=== PATIENT | male | born 1935 | race American Indian/Alaskan Native ===

== ENCOUNTER 2020-02-21 12:33 | Emergency (ER) | payer SELFPAY ==
--- NOTE | 2020-02-21 12:40 | Emergency Department Report ---
ED General Adult HPI - General Stated complaint: SYNC EPISODE Time Seen by Provider: 02/21/20 12:38 - History of Present Illness Initial comments: Patient is an 84-year-old male no significant past medical history who presents status post syncope. Patient lives in a half-way and he had a syncopal episode patient denies having any fever or chills any cough or shortness of breath. He states that this happened 1 month ago as well. Patient says he fell backwards on his buttocks did not hit his head there was no loss of consciousness he states that he felt dizzy and then leaned backwards. Currently now he is not having any dizziness. - Related Data Home Medications Medication Instructions Recorded Confirmed Last Taken Pravastatin Sodium [Pravastatin] 20 mg PO QHS 02/21/20 02/21/20 1 Day Ago ~02/20/20 amLODIPine [Norvasc] 10 mg PO DAILY 02/21/20 02/21/20 1 Day Ago ~02/20/20 carvediloL [Coreg] 3.125 mg PO BID 02/21/20 02/21/20 1 Day Ago ~02/20/20 lisinopriL [Zestril TAB] 40 mg PO QDAY 02/21/20 02/21/20 1 Day Ago ~02/20/20 metFORMIN [Glucophage] 500 mg PO BID 02/21/20 02/21/20 1 Day Ago ~02/20/20 Allergies Allergy/AdvReac Type Severity Reaction Status Date / Time Penicillins AdvReac Unknown Verified 02/21/20 13:08 ED Review of Systems ROS: Stated complaint: SYNC EPISODE Other details as noted in HPI Constitutional: denies: chills, fever Eyes: denies: eye pain, eye discharge, vision change ENT: denies: ear pain, throat pain Respiratory: denies: cough, shortness of breath, wheezing Cardiovascular: syncope. denies: chest pain, palpitations Endocrine: no symptoms reported Gastrointestinal: denies: abdominal pain, nausea, diarrhea Genitourinary: denies: urgency, dysuria Musculoskeletal: denies: back pain, joint swelling, arthralgia Skin: denies: rash, lesions Neurological: denies: headache, weakness, paresthesias Psychiatric: denies: anxiety, depression Hematological/Lymphatic: denies: easy bleeding, easy bruising ED Past Medical Hx - Medications Home Medications: Home Medications Medication Instructions Recorded Confirmed Last Taken Type Pravastatin Sodium [Pravastatin] 20 mg PO QHS 02/21/20 02/21/20 1 Day Ago History ~02/20/20 amLODIPine [Norvasc] 10 mg PO DAILY 02/21/20 02/21/20 1 Day Ago History ~02/20/20 carvediloL [Coreg] 3.125 mg PO BID 02/21/20 02/21/20 1 Day Ago History ~02/20/20 lisinopriL [Zestril TAB] 40 mg PO QDAY 02/21/20 02/21/20 1 Day Ago History ~02/20/20 metFORMIN [Glucophage] 500 mg PO BID 02/21/20 02/21/20 1 Day Ago History ~02/20/20 ED Physical Exam - General General appearance: alert, in no apparent distress - Head Head exam: Present: atraumatic, normocephalic - Eye Eye exam: Present: normal appearance - ENT ENT exam: Present: mucous membranes moist - Neck Neck exam: Present: normal inspection - Respiratory Respiratory exam: Present: normal lung sounds bilaterally. Absent: respiratory distress - Cardiovascular Cardiovascular Exam: Present: regular rate, normal rhythm. Absent: systolic murmur, diastolic murmur, rubs, gallop - GI/Abdominal GI/Abdominal exam: Present: soft, normal bowel sounds - Rectal Rectal exam: Present: deferred - Extremities Exam Extremities exam: Present: normal inspection - Back Exam Back exam: Present: normal inspection - Neurological Exam Neurological exam: Present: alert, oriented X3 - Psychiatric Psychiatric exam: Present: normal affect, normal mood - Skin Skin exam: Present: warm, dry, intact, normal color. Absent: rash ED Course Vital Signs 02/21/20 02/21/20 12:58 13:14 Temperature 97.9 F Pulse Rate 64 Respiratory 17 17 Rate Blood Pressure 148/70 Blood Pressure 148/70 [Left] O2 Sat by Pulse 98 98 Oximetry ED Medical Decision Making - Lab Data Result diagrams: 02/21/20 13:31 02/21/20 13:31 Lab Results 02/21/20 02/21/20 02/21/20 Range/Units 12:58 13:31 13:31 WBC 8.9 (4.5-11.0) K/mm3 RBC 3.90 (3.65-5.03) M/mm3 Hgb 11.7 L (11.8-15.2) gm/dl Hct 35.1 L (35.5-45.6) % MCV 90 (84-94) fl MCH 30 (28-32) pg MCHC 33 (32-34) % RDW 14.3 (13.2-15.2) % Plt Count 210 (140-440) K/mm3 Lymph % (Auto) 18.0 (13.4-35.0) % Edgar % (Auto) 6.4 (0.0-7.3) % Eos % (Auto) 5.2 H (0.0-4.3) % Baso % (Auto) 0.9 (0.0-1.8) % Lymph # (Auto) 1.6 (1.2-5.4) K/mm3 Edgar # (Auto) 0.6 (0.0-0.8) K/mm3 Eos # (Auto) 0.5 H (0.0-0.4) K/mm3 Baso # (Auto) 0.1 (0.0-0.1) K/mm3 Seg Neutrophils % 69.5 (40.0-70.0) % Seg Neutrophils # 6.2 (1.8-7.7) K/mm3 Sodium 140 (137-145) mmol/L Potassium 4.2 (3.6-5.0) mmol/L Chloride 101.2 (98-107) mmol/L Carbon Dioxide 29 (22-30) mmol/L Anion Gap 14 mmol/L BUN 18 (9-20) mg/dL Creatinine 1.2 (0.8-1.3) mg/dL Estimated GFR > 60 ml/min BUN/Creatinine Ratio 15 % Glucose 90 (75-100) mg/dL Lactic Acid (0.7-2.0) mmol/L Calcium 9.2 (8.4-10.2) mg/dL Total Bilirubin 0.20 (0.1-1.2) mg/dL AST 10 (5-40) units/L ALT 12 (7-56) units/L Alkaline Phosphatase 58 (35-129) units/L Troponin T (0.00-0.029) ng/mL Total Protein 7.3 (6.3-8.2) g/dL Albumin 3.8 L (3.9-5) g/dL Albumin/Globulin Ratio 1.1 % Urine Color Yellow (Yellow) Urine Turbidity Slightly-cloudy (Clear) Urine pH 6.0 (5.0-7.0) Ur Specific [place] 1.012 (1.003-1.030) Urine Protein <15 mg/dl (Negative) mg/dL Urine Glucose (UA) Neg (Negative) mg/dL Urine Ketones Neg (Negative) mg/dL Urine Blood Sm (Negative) Urine Nitrite Neg (Negative) Urine Bilirubin Neg (Negative) Urine Urobilinogen < 2.0 (<2.0) mg/dL Ur Leukocyte Esterase Neg (Negative) Urine WBC (Auto) 2.0 (0.0-6.0) /HPF Urine RBC (Auto) 3.0 (0.0-6.0) /HPF U Epithel Cells (Auto) < 1.0 (0-13.0) /HPF Urine Bacteria (Auto) 1+ (Negative) /HPF Urine Mucus Few /HPF 02/21/20 02/21/20 Range/Units 13:31 13:31 WBC (4.5-11.0) K/mm3 RBC (3.65-5.03) M/mm3 Hgb (11.8-15.2) gm/dl Hct (35.5-45.6) % MCV (84-94) fl MCH (28-32) pg MCHC (32-34) % RDW (13.2-15.2) % Plt Count (140-440) K/mm3 Lymph % (Auto) (13.4-35.0) % Edgar % (Auto) (0.0-7.3) % Eos % (Auto) (0.0-4.3) % Baso % (Auto) (0.0-1.8) % Lymph # (Auto) (1.2-5.4) K/mm3 Edgar # (Auto) (0.0-0.8) K/mm3 Eos # (Auto) (0.0-0.4) K/mm3 Baso # (Auto) (0.0-0.1) K/mm3 Seg Neutrophils % (40.0-70.0) % Seg Neutrophils # (1.8-7.7) K/mm3 Sodium (137-145) mmol/L Potassium (3.6-5.0) mmol/L Chloride (98-107) mmol/L Carbon Dioxide (22-30) mmol/L Anion Gap mmol/L BUN (9-20) mg/dL Creatinine (0.8-1.3) mg/dL Estimated GFR ml/min BUN/Creatinine Ratio % Glucose (75-100) mg/dL Lactic Acid 1.50 (0.7-2.0) mmol/L Calcium (8.4-10.2) mg/dL Total Bilirubin (0.1-1.2) mg/dL AST (5-40) units/L ALT (7-56) units/L Alkaline Phosphatase (35-129) units/L Troponin T < 0.010 (0.00-0.029) ng/mL Total Protein (6.3-8.2) g/dL Albumin (3.9-5) g/dL Albumin/Globulin Ratio % Urine Color (Yellow) Urine Turbidity (Clear) Urine pH (5.0-7.0) Ur Specific [place] (1.003-1.030) Urine Protein (Negative) mg/dL Urine Glucose (UA) (Negative) mg/dL Urine Ketones (Negative) mg/dL Urine Blood (Negative) Urine Nitrite (Negative) Urine Bilirubin (Negative) Urine Urobilinogen (<2.0) mg/dL Ur Leukocyte Esterase (Negative) Urine WBC (Auto) (0.0-6.0) /HPF Urine RBC (Auto) (0.0-6.0) /HPF U Epithel Cells (Auto) (0-13.0) /HPF Urine Bacteria (Auto) (Negative) /HPF Urine Mucus /HPF - EKG Data -: EKG Interpreted by Ny - EKG Data 02/21/20 13:21 EKG time 13: 17 rate 66 normal sinus rhythm no ST segment elevation no T wave inversion impression normal EKG - Medical Decision Making Cdx: Arrythmia ddx anemia, UTI I will get cbc, bmp, ua, cxr and ekg \ ED work-up is unremarkable I will discharge patient from the ED additional verbal discharge instructions were given. Critical care attestation.: If time is entered above; I have spent that time in minutes in the direct care of this critically ill patient, excluding procedure time. ED Disposition Clinical Impression: Syncope Qualifiers: Syncope type: unspecified Qualified Code(s): R55 - Syncope and collapse Disposition: DC-01 TO HOME OR SELFCARE Is pt being admited?: No Does the pt Need Aspirin: No Condition: Stable Instructions: Syncope (ED) Referrals: PRIMARY CAREMD [Primary Care Provider] - 3-5 Days BC RENEE MD [Staff Physician] - 3-5 Days
--- NOTE | 2020-02-21 13:35 | XRay Report ---
CHEST 1 VIEW 02/21/2020 12:29 PM INDICATION / CLINICAL INFORMATION: SOB. COMPARISON: None available. FINDINGS: SUPPORT DEVICES: None. HEART / MEDIASTINUM: No significant abnormality. LUNGS / PLEURA: No significant pulmonary or pleural abnormality. No pneumothorax. ADDITIONAL FINDINGS: No significant additional findings. IMPRESSION: 1. No acute abnormality of the chest. Signer Name: oJao Fairbanks MD Signed: 02/21/2020 1:30 PM Workstation Name: [id number]
[2020-02-21 13:41] LABS: Basophils # (Auto) 0.1 K/mm3 (0.0-0.1); Basophils % (Auto) 0.9 % (0.0-1.8); Eosinophils # (Auto) 0.5 K/mm3 (0.0-0.4); Eosinophils % (Auto) 5.2 % (0.0-4.3); Hematocrit 35.1 % (35.5-45.6); Hemoglobin 11.7 gm/dl (11.8-15.2); Lymphocytes # (Auto) 1.6 K/mm3 (1.2-5.4); Mean Corpuscular HGB Conc 33 % (32-34); Mean Corpuscular Volume 90 fl (84-94); Monocytes # (Auto) 0.6 K/mm3 (0.0-0.8); Monocytes % (Auto) 6.4 % (0.0-7.3); Platelet Count 210 K/mm3 (140-440); Red Cell Distribution Width 14.3 % (13.2-15.2)
[2020-02-21 14:17] LABS: Alanine Aminotransferase 12 units/L (7-56); Albumin 3.8 g/dL (3.9-5); BUN/Creatinine Ratio 15; Blood Urea Nitrogen 18 mg/dL (9-20); Calcium 9.2 mg/dL (8.4-10.2); Hemolysis Index 3
[2020-02-21 14:21] LABS: Bacteria,Urine 1+ /HPF (Negative); Bilirubin,Urine NEG (Negative); Blood,Urine SM (Negative); Color,Urine Yellow (Yellow); Mucus,Urine FEW /HPF; Protein,Urine <15 mg/dL mg/dL (Negative); Urobilinogen,Urine < 2.0 mg/dL (<2.0)
[2020-02-21 18:29] VITALS: BP 123/71
== END 2020-02-21 18:29 | disposition home or self-care (01) ==
LOC: ED 12:33
DX: R55 Syncope and collapse (principal)
CPT/HCPCS: 36415; 71045; 80053; 81001; 82140; 84484; 85025; 93005

== ENCOUNTER 2020-06-22 12:55 | Inpatient (IN) | payer MEDICARE ==
[2020-06-22] MEDS ORDERED: SODIUM CHLORIDE 0.9% 1000 ML IV SOLN IV ONE (13:33)
[2020-06-22] MEDS ORDERED: cefTRIAXone/NS 2 GM/100 ML 2 GM/100 ML BAG IV ONE (13:33)
--- NOTE | 2020-06-22 13:35 | Emergency Department Report ---
ED General Adult HPI - General Chief complaint: Dizziness Stated complaint: LBP PUI?: No Time Seen by Provider: 06/22/20 13:14 Source: patient, EMS ( EMS documentation not available at time of chart dictation ), RN notes reviewed, old records reviewed Mode of arrival: Stretcher Limitations: Physical Limitation, Other (The patient is a poor historian) - History of Present Illness Initial comments: The patient was evaluated in the emergency department for symptoms described in the history of present illness. He/she was evaluated in the context of the global COVID-19 pandemic, which necessitated consideration that the patient might be at risk for infection with the virus that causes COVID-19. Institutional protocols and algorithms that pertain to the evaluation of patients at risk for COVID-19 are in a state of rapid change based on information released by regulatory bodies including the CDC and federal and state organizations. These policies and algorithms were followed during the patient's care in the emergency department. Please note that these policies, procedures and recommendations changed on a rapid basis. Mr. Nix is a pleasant 85-year-old gentleman. He is not known to myself previously. He appears to have a past medical history of diabetes, hypertension and high cholesterol. It is not known who his primary care doctor is. He is also blind in the left eye. He may also have a history of dementia. He is brought to the hospital by emergency medical services apparently for weakness, and hypotension. It is not known who contacted emergency medical services. Apparently, the patient was at adult daycare. Patient states that he lives in a fpc. He states that "nothing is bothering me." He denies headache, neck pain, chest pain, abdominal pain, shortness of breath, urinary symptoms, loss of taste and smell, hematemesis and bright red blood per rectum. As per nursing documentation, EMS noted the patient to be hypotensive in the field, with a blood pressure of 82 systolic, then low 90 systolic. EMS reportedly gave the patient 500 cc of normal saline. Patient is not sure if he has started any new or different medications. The patient states that he is at his baseline at this time. The patient is not accompanied by friends or family at this time for additional information or collateral information. The patient has no recollection of the aforementioned complaint for weakness and hypotension. Therefore, he is not able to describe the qualitative nature of his symptoms, exacerbating factors, relieving factors, or aggravating factors. -: This afternoon Radiation: other Quality: other Consistency: other Improves with: other Worsens with: other Associated Symptoms: other Treatments Prior to Arrival: other - Related Data Home Medications Medication Instructions Recorded Confirmed Last Taken amLODIPine 10 mg PO DAILY 06/22/20 06/22/20 Unknown carvediloL [Coreg] 3.125 mg PO BID 06/22/20 06/22/20 Unknown lisinopriL [Zestril TAB] 40 mg PO QDAY 06/22/20 06/22/20 Unknown metFORMIN [Glucophage] 500 mg PO BID 06/22/20 06/22/20 Unknown Previous Rx's Medication Instructions Recorded Last Taken Type Latanoprost 0.005% 1 drops OU QHS bottle 06/26/20 Unknown Rx Pravastatin [Pravachol] 20 mg PO QHS #30 tablet 06/26/20 Unknown Rx Allergies Allergy/AdvReac Type Severity Reaction Status Date / Time Penicillins AdvReac Unknown Verified 02/21/20 13:08 ED Review of Systems ROS: Stated complaint: LBP Other details as noted in HPI Comment: All other systems reviewed and negative Eyes: other (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) ED Past Medical Hx - Past Medical History Hx Hypertension: Yes Hx Diabetes: Yes Hx Dementia: Yes Additional medical history: left eye blind, - Social History Smoking Status: Never Smoker - Medications Home Medications: Home Medications Medication Instructions Recorded Confirmed Last Taken Type amLODIPine 10 mg PO DAILY 06/22/20 06/22/20 Unknown History carvediloL [Coreg] 3.125 mg PO BID 06/22/20 06/22/20 Unknown History lisinopriL [Zestril TAB] 40 mg PO QDAY 06/22/20 06/22/20 Unknown History metFORMIN [Glucophage] 500 mg PO BID 06/22/20 06/22/20 Unknown History Latanoprost 0.005% 1 drops OU QHS bottle 06/26/20 Unknown Rx Pravastatin [Pravachol] 20 mg PO QHS #30 tablet 06/26/20 Unknown Rx ED Physical Exam - General Limitations: Physical Limitation General appearance: alert, in no apparent distress - Head Head exam: Present: atraumatic, normocephalic - Eye Eye exam: Present: EOMI. Absent: normal appearance (Cataract/opacification of the left eye. Cataract noted in the right eye.) - ENT ENT exam: Present: normal exam, normal orophraynx, mucous membranes moist, normal external ear exam - Neck Neck exam: Present: normal inspection, full ROM. Absent: tenderness, meningismus - Respiratory Respiratory exam: Present: normal lung sounds bilaterally. Absent: respiratory distress, wheezes, rales, rhonchi, stridor, decreased breath sounds - Cardiovascular Cardiovascular Exam: Present: normal rhythm, bradycardia, normal heart sounds. Absent: tachycardia, irregular rhythm, systolic murmur, diastolic murmur, rubs, gallop - GI/Abdominal GI/Abdominal exam: Present: soft. Absent: distended, tenderness, guarding, rebound, rigid, pulsatile mass - Rectal Rectal exam: Present: normal inspection, normal rectal tone, heme (-) stool - Extremities Exam Extremities exam: Present: normal inspection, full ROM, other (2+ pulses noted in the bilateral upper and lower extremities. There is no palpable cord. negative Homans sign. Muscular compartments are soft. The pelvis is stable.). Absent: pedal edema, calf tenderness - Back Exam Back exam: Present: normal inspection, full ROM. Absent: tenderness, CVA tenderness (R), CVA tenderness (L), paraspinal tenderness, vertebral tenderness - Neurological Exam Neurological exam: Present: alert, other (No facial droop. Tongue midline. Extraocular movements intact bilaterally. Facial sensation intact to light touch in V1, V2, V3 distribution bilaterally. 5 and a 5 strength in 4 extre mities. Sensation intact to light touch in 4 extremities.) - Psychiatric Psychiatric exam: Present: normal affect, normal mood - Skin Skin exam: Present: warm, dry, intact, normal color. Absent: rash ED Course Vital Signs 06/22/20 06/22/20 06/22/20 13:04 13:10 13:15 Temperature 97.6 F Pulse Rate 50 L 51 L Respiratory 18 21 Rate Blood Pressure 121/64 108/58 O2 Sat by Pulse 99 99 Oximetry 06/22/20 06/22/20 06/22/20 13:45 13:46 14:00 Temperature 94.0 F L Pulse Rate 54 L 55 L Respiratory 22 22 Rate Blood Pressure 108/58 135/64 O2 Sat by Pulse 88 99 Oximetry 06/22/20 06/22/20 06/22/20 14:30 15:00 15:16 Temperature Pulse Rate 61 65 66 Respiratory 17 16 17 Rate Blood Pressure 134/72 136/58 128/61 O2 Sat by Pulse 98 97 97 Oximetry 06/22/20 06/22/20 06/22/20 15:30 15:40 15:46 Temperature 97.7 F Pulse Rate 67 72 Respiratory 22 22 Rate Blood Pressure 108/58 126/56 O2 Sat by Pulse 97 97 Oximetry 06/22/20 06/22/20 06/22/20 16:00 16:16 16:46 Temperature Pulse Rate 69 73 70 Respiratory 25 H 25 H 26 H Rate Blood Pressure 135/64 123/58 123/58 O2 Sat by Pulse 98 98 98 Oximetry 06/22/20 06/22/20 17:00 17:16 Temperature Pulse Rate 67 69 Respiratory 18 20 Rate Blood Pressure 134/72 122/51 O2 Sat by Pulse 98 97 Oximetry - Reevaluation(s) Reevaluation #1: 06/22/20 14:08 Differential diagnosis, including but not limited to: Orthostasis, vagal event, structural cardiac disease, hypothyroidism, myxedema, pneumonia, urinary tract infection, medication side effect, bacteremia, viremia Assessment and plan: 85-year-old gentleman, who is hypothermic, with a core rectal temperature of 94 degrees, bradycardic, and hypotensive in the field. Now blood pressure in the low 100s. Patient has no complaints at this time. I have requested that nursing team reconcile patient's medications. Patient will be given fluids, and we will order ceftriaxone empirically to cover for bacteremia. As a third generation cephalosporin, ceftriaxone structurally not similar to penicillin or penicillin derivatives, and is very statistically unlikely to cause anaphylactic or anaphylactoid reaction. Laboratory studies, x-ray of the chest, urinalysis pending at this time, active patient rewarming ordered. Reassess after initial data points. Patient meets criteria for admission/hospitalization secondary to hypothermia, bradycardia, history of hypotension. Reevaluation #2: 06/22/20 15:48 Hospital physician, Dr. Patterson, to admit patient to the medical service. Nursing team perform straight catheterization, no urine was obtained, therefore, condom catheter was placed, I will defer to the inpatient team to further follow-up on urinalysis. ED Medical Decision Making - Lab Data Result diagrams: 06/26/20 07:21 06/26/20 07:21 Vital Signs 06/22/20 06/22/20 06/22/20 13:04 13:10 13:15 Temperature 97.6 F Pulse Rate 50 L 51 L Respiratory 18 21 Rate Blood Pressure 121/64 108/58 O2 Sat by Pulse 99 99 Oximetry Lab Results 06/22/20 Range/Units 13:38 WBC 7.9 (4.5-11.0) K/mm3 RBC 3.61 L (3.65-5.03) M/mm3 Hgb 11.3 L (11.8-15.2) gm/dl Hct 33.2 L (35.5-45.6) % MCV 92 (84-94) fl MCH 31 (28-32) pg MCHC 34 (32-34) % RDW 14.8 (13.2-15.2) % Plt Count 210 (140-440) K/mm3 Lymph % (Auto) 20.4 (13.4-35.0) % Allen % (Auto) 6.3 (0.0-7.3) % Eos % (Auto) 4.8 H (0.0-4.3) % Baso % (Auto) 1.4 (0.0-1.8) % Lymph # (Auto) 1.6 (1.2-5.4) K/mm3 Allen # (Auto) 0.5 (0.0-0.8) K/mm3 Eos # (Auto) 0.4 (0.0-0.4) K/mm3 Baso # (Auto) 0.1 (0.0-0.1) K/mm3 Seg Neutrophils % 67.1 (40.0-70.0) % Seg Neutrophils # 5.3 (1.8-7.7) K/mm3 - EKG Data -: EKG Interpreted by Ar EKG shows normal: sinus rhythm Rate: normal - EKG Data 06/22/20 14:10 Sinus rhythm, 54 bpm, bradycardia. Normal axis, normal intervals, motion artifact, poor R wave progression. This is an abnormal EKG. This is not a STEMI. Time of interpretation: 13: 50 p.m. - Radiology Data Radiology results: pending, report reviewed, image reviewed CHEST 1 VIEW INDICATION: Hypotension, hypothermia COMPARISON: 02/21/2020 FINDINGS: Support devices: None Heart: Within normal limits and unchanged Lungs/Pleura: No acute pulmonary or pleural findings. IMPRESSION: 1. No acute disease and no interval change. Signer Name: Brenden De La Vega MD Signed: 06/22/2020 12:52 PM Workstation Name: [id number] Critical care attestation.: If time is entered above; I have spent that time in minutes in the direct care of this critically ill patient, excluding procedure time. ED Disposition Clinical Impression: Hypotension, Lactic acidosis Hypothermia Qualifiers: Encounter type: initial encounter Qualified Code(s): T68.XXXA - Hypothermia, initial encounter Disposition: DC09 OP ADMIT IP TO THIS HOSP Is pt being admited?: Yes Does the pt Need Aspirin: No Condition: Fair
[2020-06-22 13:56] LABS: Basophils # (Auto) 0.1 K/mm3 (0.0-0.1); Basophils % (Auto) 1.4 % (0.0-1.8); Eosinophils # (Auto) 0.4 K/mm3 (0.0-0.4); Eosinophils % (Auto) 4.8 % (0.0-4.3); Hematocrit 33.2 % (35.5-45.6); Hemoglobin 11.3 gm/dl (11.8-15.2); Lymphocytes # (Auto) 1.6 K/mm3 (1.2-5.4); Lymphocytes % (Auto) 20.4 % (13.4-35.0); Mean Corpuscular HGB Conc 34 % (32-34); Mean Corpuscular Volume 92 fl (84-94); Monocytes # (Auto) 0.5 K/mm3 (0.0-0.8); Monocytes % (Auto) 6.3 % (0.0-7.3); Platelet Count 210 K/mm3 (140-440); Red Blood Count 3.61 M/mm3 (3.65-5.03); Red Cell Distribution Width 14.8 % (13.2-15.2)
--- NOTE | 2020-06-22 14:06 | XRay Report ---
CHEST 1 VIEW INDICATION: Hypotension, hypothermia COMPARISON: 02/21/2020 FINDINGS: Support devices: None Heart: Within normal limits and unchanged Lungs/Pleura: No acute pulmonary or pleural findings. IMPRESSION: 1. No acute disease and no interval change. Signer Name: Brenden De La Vega MD Signed: 06/22/2020 1:52 PM Workstation Name: [id number]
[2020-06-22 15:26] LABS: Alanine Aminotransferase 8 units/L (7-56); Albumin 3.8 g/dL (3.9-5); BUN/Creatinine Ratio 13; Blood Urea Nitrogen 17 mg/dL (9-20); Calcium 9.3 mg/dL (8.4-10.2); Hemolysis Index 6
--- NOTE | 2020-06-22 15:49 | History and Physical Report ---
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 Patient has diminished cognition and is unable to provide detailed history. Patient reports "nothing is bothering me". Patient history taken from EMS staff, ED staff, as well as jail staff. As per staff the patient was found to have increased weakness and low blood pressure today. EMS was notified and upon arrival the patient was found to be in distress with a systolic blood pressure in the 90s. Patient transported to [facility] for further care and evaluation. Patient seen and evaluated in the emergency department. All lab and imaging studies reviewed. Patient found to be hypothermic with a body core temperature of 94 F, systolic blood pressure in the 90s, lactic acidosis, urinary tract infection complicated by sepsis. Patient mated to medical floor and initiated on sepsis protocol. Patient symptoms improved with IV fluid resuscitation therapy and warming b lanket. Patient is confused and lethargic the time my evaluation but has a positive gag reflex and is able to protect his airway without difficulty. No further history is obtainable. No prior admission for review. All medication listed at time of admission has been reconciled. Advanced care planning conducted in ED. Past History Past Medical History: diabetes, hypertension, hyperlipidemia, other (See HPI) Past Surgical History: No surgical history, Other (Reviewed) Social history: single. denies: smoking, alcohol abuse, prescription drug abuse Family history: diabetes, hypertension Medications and Allergies Allergies Allergy/AdvReac Type Severity Reaction Status Date / Time Penicillins AdvReac Unknown Verified 02/21/20 13:08 Home Medications Medication Instructions Recorded Confirmed Last Taken Type Latanoprost 0.005% 1 drop OU QHS 06/22/20 06/22/20 Unknown History Pravastatin [Pravachol] 20 mg PO QHS 06/22/20 06/22/20 Unknown History amLODIPine [Norvasc] 10 mg PO DAILY 06/22/20 06/22/20 Unknown History carvediloL [Coreg] 3.125 mg PO BID 06/22/20 06/22/20 Unknown History lisinopriL [Zestril TAB] 40 mg PO QDAY 06/22/20 06/22/20 Unknown History metFORMIN [Glucophage] 500 mg PO BID 06/22/20 06/22/20 Unknown History Review of Systems ROS unobtainable: due to mental status Exam - Constitutional Vitals: Temp Pulse Resp BP Pulse Ox 97.7 F 66 17 128/61 97 06/22/20 15:40 06/22/20 15:16 06/22/20 15:16 06/22/20 15:16 06/22/20 15:16 General appearance: Present: mild distress - EENT Eyes: Present: PERRL ENT: clear oral mucosa, hearing decreased - Neck Neck: Present: supple, normal ROM - Respiratory Respiratory effort: normal Respiratory: bilateral: CTA - Cardiovascular Heart Sounds: Present: S1 & S2. Absent: rub, click - Extremities Extremities: pulses symmetrical, No edema Peripheral Pulses: abnormal (Capillary refill greater than 3.5 seconds) - Abdominal General gastrointestinal: Present: soft, non-tender, non-distended, normal bowel sounds Male genitourinary: Present: normal - Integumentary Integumentary: Present: dry, clammy - Musculoskeletal Musculoskeletal: generalized weakness - Psychiatric Psychiatric: no appropriate mood/affect, no intact judgment & insight, no memory intact, agitated - Neurologic Neurologic: CNII-XII intact, no focal deficits, moves all extremities, no gait normal HEART Score - HEART Score Troponin: Troponin T < 0.010 ng/mL (0.00-0.029) 06/22/20 13:38 Results - Labs CBC & Chem 7: 06/22/20 13:38 06/22/20 13:38 Labs: Abnormal lab results 06/22/20 06/22/20 06/22/20 Range/Units 13:38 13:38 13:38 RBC 3.61 L (3.65-5.03) M/mm3 Hgb 11.3 L (11.8-15.2) gm/dl Hct 33.2 L (35.5-45.6) % Eos % (Auto) 4.8 H (0.0-4.3) % Lactic Acid (0.7-2.0) mmol/L Albumin (3.9-5) g/dL Salicylates < 0.3 L (2.8-20.0) mg/dL Acetaminophen 5.0 L (10.0-30.0) ug/mL 06/22/20 06/22/20 Range/Units 13:38 13:38 RBC (3.65-5.03) M/mm3 Hgb (11.8-15.2) gm/dl Hct (35.5-45.6) % Eos % (Auto) (0.0-4.3) % Lactic Acid 2.10 H* (0.7-2.0) mmol/L Albumin 3.8 L (3.9-5) g/dL Salicylates (2.8-20.0) mg/dL Acetaminophen (10.0-30.0) ug/mL Assessment and Plan - Patient Problems (1) Sepsis Current Visit: Yes Status: Acute Plan to address problem: Sepsis protocol: CBC, CMP, IV fluid resuscitation therapy, IV antibiotic therapy, chest x-ray, urinalysis, blood culture, serial lactic acid level, monitor urine output every shift, monitor fluid balance, maintain mean arterial pressure greater than or equal to 65. (2) Hypothermia Current Visit: Yes Status: Acute Qualifiers: Encounter type: initial encounter Qualified Code(s): T68.XXXA - Hypothermia, initial encounter Plan to address problem: Supportive care, treat sepsis, warming blanket. (3) Lactic acidosis Current Visit: Yes Status: Acute Plan to address problem: IV fluid resuscitation therapy, treat sepsis, serial lactic acid level. (4) DVT prophylaxis Current Visit: Yes Status: Acute Plan to address problem: SCD to bilateral lower extremities while in bed, prophylactic anticoagulation. (5) Advance care planning Current Visit: Yes Status: Acute Plan to address problem: Disease education conducted, patient is full code, care plan discussed, prognosis discussed, +30 minutes.
[2020-06-22] MEDS ORDERED: ALBUTEROL 2.5 MG/3 ML NEBU IH PRN (16:03)
[2020-06-22] MEDS ORDERED: ONDANSETRON 4 MG/2 ML INJ IV PRN (16:03)
[2020-06-22] MEDS ORDERED: ACETAMINOPHEN 325 MG TAB PO PRN ×2 (16:03→16:04)
[2020-06-22] MEDS ORDERED: HYDROmorphone 1 MG/1 ML INJ IV PRN (16:04)
[2020-06-22] MEDS ORDERED: DEXTROSE 50% IN WATER (25GM) 50 ML SYRINGE IV PRN (16:06)
[2020-06-22] MEDS: INSULIN REGULAR, HUMAN 100 UNITS/1 ML SUB-Q SCH ×2 (17:42→22:00)
[2020-06-22 18:24] LABS: Bacteria,Urine 2+ /HPF (Negative); Bilirubin,Urine NEG (Negative); Blood,Urine SM (Negative); Color,Urine Yellow (Yellow); Mucus,Urine FEW /HPF; Protein,Urine <15 mg/dL mg/dL (Negative); Urobilinogen,Urine < 2.0 mg/dL (<2.0)
[2020-06-22] MEDS: PRAVASTATIN 20 MG TAB PO SCH (21:11)
[2020-06-22] MEDS: HEPARIN 5,000 UNIT/1 ML VIAL SUB-Q SCH (21:11)
[2020-06-22] MEDS: LATANOPROST 0.005% OPHTH SOLN 2.5 ML OU SCH (22:00)
[2020-06-23 05:15] LABS: Basophils # (Auto) 0.1 K/mm3 (0.0-0.1); Basophils % (Auto) 0.9 % (0.0-1.8); Eosinophils # (Auto) 0.2 K/mm3 (0.0-0.4); Eosinophils % (Auto) 3.6 % (0.0-4.3); Hemoglobin 9.8 gm/dl (11.8-15.2); Lymphocytes # (Auto) 1.6 K/mm3 (1.2-5.4); Mean Corpuscular HGB Conc 34 % (32-34); Mean Corpuscular Volume 91 fl (84-94); Monocytes # (Auto) 0.4 K/mm3 (0.0-0.8); Monocytes % (Auto) 6.6 % (0.0-7.3); Platelet Count 194 K/mm3 (140-440)
[2020-06-23 05:35] LABS: Alanine Aminotransferase 7 units/L (7-56); Albumin 3.3 g/dL (3.9-5); BUN/Creatinine Ratio 12; Blood Urea Nitrogen 14 mg/dL (9-20); Calcium 8.5 mg/dL (8.4-10.2); Hemolysis Index 5
[2020-06-23] MEDS: INSULIN REGULAR, HUMAN 100 UNITS/1 ML SUB-Q SCH ×4 (08:16→21:30)
[2020-06-23] MEDS: HEPARIN 5,000 UNIT/1 ML VIAL SUB-Q SCH ×2 (09:04→21:20)
[2020-06-23] MEDS: LATANOPROST 0.005% OPHTH SOLN 2.5 ML OU SCH (21:20)
[2020-06-23] MEDS: PRAVASTATIN 20 MG TAB PO SCH (21:21)
[2020-06-24] MEDS: INSULIN REGULAR, HUMAN 100 UNITS/1 ML SUB-Q SCH ×4 (10:19→21:38)
[2020-06-24] MEDS: HEPARIN 5,000 UNIT/1 ML VIAL SUB-Q SCH ×2 (10:21→21:36)
--- NOTE | 2020-06-24 16:00 | Progress Note ---
Assessment and Plan Assessment and Plan - Patient Problems (1) Sepsis Current Visit: Yes Status: Acute Plan to address problem: Continue IV antibiotics (2) Hypothermia Current Visit: Yes Status: Acute Qualifiers: Encounter type: initial encounter Qualified Code(s): T68.XXXA - Hypothermia, initial encounter Plan to address problem: Improved (3) Lactic acidosis Current Visit: Yes Status: Acute Plan to address problem: Improved (4) DVT prophylaxis Current Visit: Yes Status: Acute Plan to address problem: SCD to bilateral lower extremities while in bed, prophylactic anticoagulation. (5) Advance care planning Current Visit: Yes Status: Acute Plan to address problem: Disease education conducted, patient is full code, care plan discussed, prognosis discussed, +30 minutes. Subjective Date of service: 06/23/20 Interval history: 85 YO Male [facility] Resident with HTN, HLD, DM, Vascular Dementia, Cerebral Atherosclerosis presents to ED for evaluation. Patient has diminished cognition and is unable to provide detailed history. Patient reports "nothing is bothering me". Patient history taken from EMS staff, ED staff, as well as [facility] staff. As per staff the patient was found to have increased weakness and low blood pressure today. EMS was notified and upon arrival the patient was found to be in distress with a systolic blood pressure in the 90s. Patient transported to [facility] for further care and evaluation. Patient seen and evaluated in the emergency department. All lab and imaging studies reviewed. Patient found to be hypothermic with a body core temperature of 94 F, systolic blood pressure in the 90s, lactic acidosis, urinary tract infection complicated by sepsis. Patient mated to medical floor and initiated on sepsis protocol. Patient symptoms improved with IV fluid resuscitation therapy and warming blanket. Patient is confused and lethargic the time my evaluation but has a positive gag reflex and is able to protect his airway without difficulty. No further history is obtainable. No prior admission for review. All medication listed at time of admission has been reconciled. Advanced care planning conducted in ED. Objective - Constitutional Vitals: Vital Signs - 12hr 06/24/20 06/24/20 06/24/20 05:27 07:58 10:00 Temperature 98.3 F 98.4 F Pulse Rate 61 63 63 Pulse Rate [ 65 Dorsalis Pedis] Pulse Rate [ 65 Left Radial] Pulse Rate [ 65 Posterior Tibial] Pulse Rate [ 65 Right Radial] Respiratory 20 18 19 Rate Blood Pressure 140/71 137/68 O2 Sat by Pulse 98 93 98 Oximetry 06/24/20 11:15 Temperature 98.4 F Pulse Rate 66 Pulse Rate [ Dorsalis Pedis] Pulse Rate [ Left Radial] Pulse Rate [ Posterior Tibial] Pulse Rate [ Right Radial] Respiratory 20 Rate Blood Pressure 137/59 O2 Sat by Pulse 95 Oximetry General appearance: Present: no acute distress, well-nourished - EENT Eyes: PERRL, EOM intact ENT: hearing intact, clear oral mucosa Ears: bilateral: normal - Neck Neck: supple, normal ROM - Respiratory Respiratory effort: normal Respiratory: bilateral: CTA - Breasts Breasts: normal - Cardiovascular Heart rate: 78 Rhythm: regular Heart Sounds: Present: S1 & S2. Absent: gallop, rub Extremities: pulses intact, No edema, normal color, Full ROM - Gastrointestinal General gastrointestinal: Present: soft, non-tender, non-distended, normal bowel sounds - Genitourinary Male genitourinary: normal - Integumentary Integumentary: clear, warm, dry - Musculoskeletal Musculoskeletal: 1, strength equal bilaterally - Neurologic Neurologic: moves all extremities - Psychiatric Psychiatric: memory intact, appropriate mood/affect, intact judgment & insight - Labs CBC & Chem 7: 06/23/20 04:59 06/23/20 04:59 Labs: Abnormal lab results 06/23/20 06/23/20 06/24/20 Range/Units 15:45 20:57 11:55 POC Glucose 125 H 235 H 110 H (70-105) mg/dL HEART Score - HEART Score Troponin: Troponin T < 0.010 ng/mL (0.00-0.029) 06/22/20 13:38
--- NOTE | 2020-06-24 16:16 | Progress Note ---
Assessment and Plan Assessment and Plan - Patient Problems (1) Sepsis Current Visit: Yes Status: Acute Plan to address problem: Continue IV antibiotics (2) Acute encephalopathy Current Visit: Yes Status: Acute Qualifiers: Encounter type: initial encounter Qualified Code(s): T68.XXXA - Hypothermia, initial encounter Plan to address problem: Improved (3) Lactic acidosis Current Visit: Yes Status: Acute Plan to address problem: Improved (4) DVT prophylaxis Current Visit: Yes Status: Acute Plan to address problem: SCD to bilateral lower extremities while in bed, prophylactic anticoagulation. (5) Advance care planning Current Visit: Yes Status: Acute Plan to address problem: Disease education conducted, patient is full code, care plan discussed, prognosis discussed, +30 minutes. Subjective Date of service: 06/24/20 Principal diagnosis: Sepsis, acute encephalopathy Interval history: 85 YO Male [facility] Resident with HTN, HLD, DM, Vascular Dementia, Cerebral Atherosclerosis presents to ED for evaluation. Patient has diminished cognition and is unable to provide detailed history. Patient reports "nothing is bothering me". Patient history taken from EMS staff, ED staff, as well as alf staff. As per staff the patient was found to have increased weakness and low blood pressure today. EMS was notified and upon arrival the patient was found to be in distress with a systolic blood pressure in the 90s. Patient transported to [facility] for further care and evaluation. Patient seen and evaluated in the emergency department. All lab and imaging studies reviewed. Patient f ound to be hypothermic with a body core temperature of 94 F, systolic blood pressure in the 90s, lactic acidosis, urinary tract infection complicated by sepsis. Patient mated to medical floor and initiated on sepsis protocol. Patient symptoms improved with IV fluid resuscitation therapy and warming blanket. Patient is confused and lethargic the time my evaluation but has a positive gag reflex and is able to protect his airway without difficulty. No further history is obtainable. No prior admission for review. All medication listed at time of admission has been reconciled. Advanced care planning conducted in ED. 06/23/2020 Still lethargic 06/24/2020 More alert and oriented Objective - Constitutional Vitals: Vital Signs - 12hr 06/24/20 06/24/20 06/24/20 05:27 07:58 10:00 Temperature 98.3 F 98.4 F Pulse Rate 61 63 63 Pulse Rate [ 65 Dorsalis Pedis] Pulse Rate [ 65 Left Radial] Pulse Rate [ 65 Posterior Tibial] Pulse Rate [ 65 Right Radial] Respiratory 20 18 19 Rate Blood Pressure 140/71 137/68 O2 Sat by Pulse 98 93 98 Oximetry 06/24/20 11:15 Temperature 98.4 F Pulse Rate 66 Pulse Rate [ Dorsalis Pedis] Pulse Rate [ Left Radial] Pulse Rate [ Posterior Tibial] Pulse Rate [ Right Radial] Respiratory 20 Rate Blood Pressure 137/59 O2 Sat by Pulse 95 Oximetry General appearance: Present: no acute distress, well-nourished - EENT Eyes: PERRL, EOM intact ENT: hearing intact, clear oral mucosa Ears: bilateral: normal - Neck Neck: supple, normal ROM - Respiratory Respiratory effort: normal Respiratory: bilateral: CTA - Breasts Breasts: normal - Cardiovascular Heart rate: 78 Rhythm: regular Heart Sounds: Present: S1 & S2. Absent: gallop, rub Extremities: pulses intact, No edema, normal color, Full ROM - Gastrointestinal General gastrointestinal: Present: soft, non-tender, non-distended, normal bowel sounds - Genitourinary Male genitourinary: normal - Integumentary Integumentary: clear, warm, dry - Musculoskeletal Musculoskeletal: 1, strength equal bilaterally - Neurologic Neurologic: moves all extremities - Psychiatric Psychiatric: other (Lethargic) - Allied health notes Allied health notes reviewed: nursing, case management - Labs CBC & Chem 7: 06/23/20 04:59 06/23/20 04:59 Labs: Abnormal lab results 06/23/20 06/23/20 06/24/20 Range/Units 15:45 20:57 11:55 POC Glucose 125 H 235 H 110 H (70-105) mg/dL HEART Score - HEART Score Troponin: Troponin T < 0.010 ng/mL (0.00-0.029) 06/22/20 13:38
[2020-06-24] MEDS: LATANOPROST 0.005% OPHTH SOLN 2.5 ML OU SCH (21:36)
[2020-06-24] MEDS: PRAVASTATIN 20 MG TAB PO SCH (21:36)
[2020-06-25] MEDS: LATANOPROST 0.005% OPHTH SOLN 2.5 ML OU SCH
[2020-06-25 07:19] LABS: Basophils # (Auto) 0.1 K/mm3 (0.0-0.1); Basophils % (Auto) 1.5 % (0.0-1.8); Eosinophils # (Auto) 0.4 K/mm3 (0.0-0.4); Eosinophils % (Auto) 7.6 % (0.0-4.3); Hematocrit 31.1 % (35.5-45.6); Hemoglobin 10.3 gm/dl (11.8-15.2); Lymphocytes # (Auto) 1.8 K/mm3 (1.2-5.4); Mean Corpuscular HGB Conc 33 % (32-34); Mean Corpuscular Volume 91 fl (84-94); Monocytes # (Auto) 0.5 K/mm3 (0.0-0.8); Monocytes % (Auto) 9.3 % (0.0-7.3); Platelet Count 176 K/mm3 (140-440); Red Blood Count 3.43 M/mm3 (3.65-5.03); Red Cell Distribution Width 14.9 % (13.2-15.2)
[2020-06-25 07:42] LABS: Alanine Aminotransferase 7 units/L (7-56); Albumin 3.3 g/dL (3.9-5); BUN/Creatinine Ratio 11; Blood Urea Nitrogen 13 mg/dL (9-20); Calcium 8.7 mg/dL (8.4-10.2); Hemolysis Index 1
[2020-06-25] MEDS: INSULIN REGULAR, HUMAN 100 UNITS/1 ML SUB-Q SCH ×4 (09:15→21:43)
[2020-06-25] MEDS: HEPARIN 5,000 UNIT/1 ML VIAL SUB-Q SCH ×2 (09:15→21:41)
--- NOTE | 2020-06-25 14:10 | Progress Note ---
Assessment and Plan Assessment and Plan - Patient Problems (1) Sepsis Current Visit: Yes Status: Acute Plan to address problem: Continue IV antibiotics (2) Acute encephalopathy Current Visit: Yes Status: Acute Qualifiers: Encounter type: initial encounter Qualified Code(s): T68.XXXA - Hypothermia, initial encounter Plan to address problem: Improved (3) Lactic acidosis Current Visit: Yes Status: Acute Plan to address problem: Improved (4) DVT prophylaxis Current Visit: Yes Status: Acute Plan to address problem: SCD to bilateral lower extremities while in bed, prophylactic anticoagulation. (5) Advance care planning Current Visit: Yes Status: Acute Plan to address problem: Disease education conducted, patient is full code, care plan discussed, prognosis discussed, +30 minutes. 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 Patient has diminished cognition and is unable to provide detailed history. Patient reports "nothing is bothering me". Patient history taken from EMS staff, ED staff, as well as retirement staff. As per staff the patient was found to have increased weakness and low blood pressure today. EMS was notified and upon arrival the patient was found to be in distress with a systolic blood pressure in the 90s. Patient transported to [facility] for further care and evaluation. Patient seen and evaluated in the emergency department. All lab and imaging studies reviewed. Patient f ound to be hypothermic with a body core temperature of 94 F, systolic blood pressure in the 90s, lactic acidosis, urinary tract infection complicated by sepsis. Patient mated to medical floor and initiated on sepsis protocol. Patient symptoms improved with IV fluid resuscitation therapy and warming blanket. Patient is confused and lethargic the time my evaluation but has a positive gag reflex and is able to protect his airway without difficulty. No further history is obtainable. No prior admission for review. All medication listed at time of admission has been reconciled. Advanced care planning conducted in ED. 06/23/2020 Still lethargic 06/24/2020 More alert and oriented 06/25/2020 More alert and oriented Continue antibiotics Objective - Constitutional Vitals: Vital Signs - 12hr 06/25/20 06/25/20 06/25/20 05:02 07:55 08:58 Temperature 98.2 F 98.0 F Pulse Rate 56 L 60 60 Pulse Rate [ Left Radial] Pulse Rate [ Right Radial] Respiratory 16 16 Rate Blood Pressure 149/75 132/65 O2 Sat by Pulse 98 95 Oximetry 06/25/20 06/25/20 10:00 11:49 Temperature 97.9 F Pulse Rate 72 Pulse Rate [ 65 Left Radial] Pulse Rate [ 65 Right Radial] Respiratory 18 16 Rate Blood Pressure 122/60 O2 Sat by Pulse 98 94 Oximetry General appearance: Present: no acute distress, well-nourished - EENT Eyes: PERRL, EOM intact ENT: hearing intact, clear oral mucosa Ears: bilateral: normal - Neck Neck: supple, normal ROM - Respiratory Respiratory effort: normal Respiratory: bilateral: CTA - Breasts Breasts: normal - Cardiovascular Heart rate: 78 Rhythm: regular Heart Sounds: Present: S1 & S2. Absent: gallop, rub Extremities: pulses intact, No edema, normal color, Full ROM - Gastrointestinal General gastrointestinal: Present: soft, non-tender, non-distended, normal bowel sounds - Genitourinary Male genitourinary: normal - Integumentary Integumentary: clear, warm, dry - Musculoskeletal Musculoskeletal: 1, strength equal bilaterally - Neurologic Neurologic: moves all extremities - Psychiatric Psychiatric: memory intact, appropriate mood/affect, intact judgment & insight - Labs CBC & Chem 7: 06/26/20 07:21 06/26/20 07:21 Labs: Abnormal lab results 06/24/20 06/24/20 06/25/20 Range/Units 16:06 21:42 06:58 RBC 3.43 L (3.65-5.03) M/mm3 Hgb 10.3 L (11.8-15.2) gm/dl Hct 31.1 L (35.5-45.6) % Holmes % (Auto) 9.3 H (0.0-7.3) % Eos % (Auto) 7.6 H (0.0-4.3) % Glucose (75-100) mg/dL POC Glucose 137 H 132 H (70-105) mg/dL Albumin (3.9-5) g/dL 06/25/20 06/25/20 06/25/20 Range/Units 06:58 08:02 11:47 RBC (3.65-5.03) M/mm3 Hgb (11.8-15.2) gm/dl Hct (35.5-45.6) % Holmes % (Auto) (0.0-7.3) % Eos % (Auto) (0.0-4.3) % Glucose 159 H (75-100) mg/dL POC Glucose 147 H 114 H (70-105) mg/dL Albumin 3.3 L (3.9-5) g/dL HEART Score - HEART Score Troponin: Troponin T < 0.010 ng/mL (0.00-0.029) 06/22/20 13:38
[2020-06-25] MEDS: PRAVASTATIN 20 MG TAB PO SCH (21:41)
[2020-06-26 08:38] LABS: Basophils # (Auto) 0.1 K/mm3 (0.0-0.1); Basophils % (Auto) 1.1 % (0.0-1.8); Eosinophils # (Auto) 0.4 K/mm3 (0.0-0.4); Eosinophils % (Auto) 6.8 % (0.0-4.3); Hematocrit 30.5 % (35.5-45.6); Hemoglobin 10.2 gm/dl (11.8-15.2); Lymphocytes # (Auto) 1.8 K/mm3 (1.2-5.4); Lymphocytes % (Auto) 30.7 % (13.4-35.0); Mean Corpuscular HGB Conc 34 % (32-34); Mean Corpuscular Volume 92 fl (84-94); Monocytes # (Auto) 0.5 K/mm3 (0.0-0.8); Monocytes % (Auto) 9.4 % (0.0-7.3); Platelet Count 176 K/mm3 (140-440); Red Blood Count 3.33 M/mm3 (3.65-5.03); Red Cell Distribution Width 14.6 % (13.2-15.2)
[2020-06-26 08:59] LABS: Alanine Aminotransferase 8 units/L (7-56); Albumin 3.3 g/dL (3.9-5); BUN/Creatinine Ratio 12; Blood Urea Nitrogen 13 mg/dL (9-20); Calcium 8.8 mg/dL (8.4-10.2); Hemolysis Index 0
[2020-06-26] MEDS: INSULIN REGULAR, HUMAN 100 UNITS/1 ML SUB-Q SCH ×4 (09:59→22:00)
[2020-06-26] MEDS: HEPARIN 5,000 UNIT/1 ML VIAL SUB-Q SCH ×2 (09:59→21:21)
--- NOTE | 2020-06-26 15:54 | Discharge Summary ---
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 Patient has diminished cognition and is unable to provide detailed history. Patient reports "nothing is bothering me". Patient history taken from EMS staff, ED staff, as well as halfway staff. As per staff the patient was found to have increased weakness and low blood pressure today. EMS was notified and upon arrival the patient was found to be in distress with a systolic blood pressure in the 90s. Patient transported to [facility] for further care and evaluation. Patient seen and evaluated in the emergency department. All lab and imaging studies reviewed. Patient found to be hypothermic with a body core temperature of 94 F, systolic blood p ressure in the 90s, lactic acidosis, urinary tract infection complicated by sepsis. Patient mated to medical floor and initiated on sepsis protocol. Patient symptoms improved with IV fluid resuscitation therapy and warming blanket. Patient is confused and lethargic the time my evaluation but has a positive gag reflex and is able to protect his airway without difficulty. No further history is obtainable. No prior admission for review. All medication listed at time of admission has been reconciled. Advanced care planning conducted in ED. 06/23/2020 Still lethargic 06/24/2020 More alert and oriented 06/25/2020 More alert and oriented Continue antibiotics 06/26/2020 Patient much improved Discharge on oral antibiotics Assessment and Plan - Patient Problems (1) Sepsis Current Visit: Yes Status: Acute Plan to address problem: Continue IV antibiotics (2) Acute encephalopathy Current Visit: Yes Status: Acute Qualifiers: Encounter type: initial encounter Qualified Code(s): T68.XXXA - Hypothermia, initial encounter Plan to address problem: Improved (3) Lactic acidosis Current Visit: Yes Status: Acute Plan to address problem: Improved (4) DVT prophylaxis Current Visit: Yes Status: Acute Plan to address problem: SCD to bilateral lower extremities while in bed, prophylactic anticoagulation. (5) Advance care planning Current Visit: Yes Status: Acute Plan to address problem: Disease education conducted, patient is full code, care plan discussed, prognosis discussed, +30 minutes. Disposition: DC-01 TO HOME OR SELFCARE - Discharge Diagnoses (1) Hypotension Status: Acute (2) Lactic acidosis Status: Acute (3) Sepsis Status: Acute (4) DVT prophylaxis Status: Acute Core Measure Documentation - Palliative Care Palliative Care/ Comfort Measures: Not Applicable - Core Measures Any of the following diagnoses?: none Exam - Constitutional Vitals: Temp Pulse Resp BP Pulse Ox 98.3 F 60 19 118/67 96 06/26/20 11:58 06/26/20 15:01 06/26/20 11:30 06/26/20 11:30 06/26/20 12:26 General appearance: Present: no acute distress, well-nourished - EENT Eyes: Present: PERRL ENT: hearing intact, clear oral mucosa - Neck Neck: Present: supple, normal ROM - Respiratory Respiratory effort: normal Respiratory: bilateral: CTA - Cardiovascular Heart rate: 78 Rhythm: regular Heart Sounds: Present: S1 & S2. Absent: rub, click - Extremities Extremities: pulses symmetrical, No edema Peripheral Pulses: within normal limits - Abdominal General gastrointestinal: Present: soft, non-tender, non-distended, normal bowel sounds Male genitourinary: Present: normal - Integumentary Integumentary: Present: clear, warm, dry - Musculoskeletal Musculoskeletal: gait normal, strength equal bilaterally - Psychiatric Psychiatric: appropriate mood/affect, intact judgment & insight - Neurologic Neurologic: CNII-XII intact, moves all extremities Plan Activity: no restrictions Diet: low salt Follow up with: PRIMARY CARE, [Primary Care Provider] - 3-5 Days
[2020-06-26] MEDS: PRAVASTATIN 20 MG TAB PO SCH (21:20)
[2020-06-26] MEDS: LATANOPROST 0.005% OPHTH SOLN 2.5 ML OU SCH (23:28)
[2020-06-27 00:02] VITALS: BP 143/67
== END 2020-06-27 00:31 | disposition home or self-care (01) | DRG 872 ==
LOC: ED 12:55 → 4A 16:03
PROVIDERS: ADMIT Internal Medicine; ATTEND Internal Medicine
DX: A41.9 Sepsis, unspecified organism (principal); G93.49 Other encephalopathy; E44.0 Moderate protein-calorie malnutrition; F03.90 Unspecified dementia, unspecified severity, without behavioral disturbance, psychotic disturbance, mood disturbance, and anxiety; E78.5 Hyperlipidemia, unspecified; I10 Essential (primary) hypertension; I95.9 Hypotension, unspecified; E11.9 Type 2 diabetes mellitus without complications; I67.2 Cerebral atherosclerosis; T68.XXXA Hypothermia, initial encounter; Z79.899 Other long term (current) drug therapy; Z79.84 Long term (current) use of oral hypoglycemic drugs; Z88.0 Allergy status to penicillin; Y92.89 Other specified places as the place of occurrence of the external cause; Z68.25 Body mass index [BMI] 25.0-25.9, adult
CPT/HCPCS: 36415; 71045; 80053; 80320; 81001; 82140; 82550; 82962; 83735; 84443; 84484; 85025; 86850; 86900; 86901; 87040; 93005; 94640; 94760; 96372; 96374; 99406; G0378; A9270-GY; G0480; J0696; J1644; J1815; J7030

== ENCOUNTER 2020-08-10 11:24 | Observation (INO) | payer MEDICARE ==
[2020-08-10] MEDS ORDERED: SODIUM CHLORIDE 0.9% 1000 ML 1,000 ML IV ONE (11:29)
--- NOTE | 2020-08-10 11:33 | Emergency Department Report ---
- General Stated complaint: LOW BP PUI?: No Time Seen by Provider: 08/10/20 11:27 Source: patient, EMS, old records reviewed Mode of arrival: Stretcher Limitations: No Limitations - History of Present Illness Initial comments: Chief complaint: Lethargy low blood pressure HPI: This is an 85-year-old male with history of hypertension, diabetes mellitus, vascular dementia, dyslipidemia who presents with decreased level consciousness lethargy hypotension. Patient was evaluated at [facility] [place] by EMS. Patient had blood pressure systolic 60 mm Hg. care staff informed EMS that patient was evaluated at [facility] yesterday for similar symptoms. Patient is drowsy. He is states that he is "all right". According to EMS report, patient resides at a senior living. Patient's mentation improved with IV fluid given via EMS MD Complaint: generalized weakness -: Sudden, This morning Location: generalized Severity: mild Consistency: other (Improving) Improves with: other (Improved with IV fluid given per EMS) Worsens with: none Associated Symptoms: denies other symptoms - Related Data Home Medications Medication Instructions Recorded Confirmed Last Taken amLODIPine 10 mg PO DAILY 06/22/20 06/22/20 Unknown carvediloL [Coreg] 3.125 mg PO BID 06/22/20 06/22/20 Unknown lisinopriL [Zestril TAB] 40 mg PO QDAY 06/22/20 06/22/20 Unknown metFORMIN [Glucophage] 500 mg PO BID 06/22/20 06/22/20 Unknown Previous Rx's Medication Instructions Recorded Last Taken Type Latanoprost 0.005% 1 drops OU QHS bottle 06/26/20 Unknown Rx Pravastatin [Pravachol] 20 mg PO QHS #30 tablet 06/26/20 Unknown Rx Allergies Allergy/AdvReac Type Severity Reaction Status Date / Time Penicillins AdvReac Unknown Verified 02/21/20 13:08 ED Review of Systems ROS: Stated complaint: LOW BP Other details as noted in HPI Comment: Unobtainable due to pts medical conditions (Limited due to dementia) ED Past Medical Hx - Past Medical History Previous Medical History?: Yes Hx Hypertension: Yes Hx Diabetes: Yes Hx Dementia: Yes Additional medical history: left eye blind, - Family History Family history: diabetes, hypertension - Social History Smoking Status: Never Smoker - Medications Home Medications: Home Medications Medication Instructions Recorded Confirmed Last Taken Type amLODIPine 10 mg PO DAILY 06/22/20 06/22/20 Unknown History carvediloL [Coreg] 3.125 mg PO BID 06/22/20 06/22/20 Unknown History lisinopriL [Zestril TAB] 40 mg PO QDAY 06/22/20 06/22/20 Unknown History metFORMIN [Glucophage] 500 mg PO BID 06/22/20 06/22/20 Unknown History Latanoprost 0.005% 1 drops OU QHS bottle 06/26/20 Unknown Rx Pravastatin [Pravachol] 20 mg PO QHS #30 tablet 06/26/20 Unknown Rx ED Physical Exam - General General appearance: alert, other (Drowsy but will answer questions) - Head Head exam: Present: atraumatic, normocephalic - ENT ENT exam: Present: mucous membranes moist - Neck Neck exam: Present: normal inspection, full ROM - Respiratory Respiratory exam: Present: normal lung sounds bilaterally. Absent: respiratory distress, wheezes, rales, stridor - Cardiovascular Cardiovascular Exam: Present: regular rate, normal rhythm, normal heart sounds. Absent: systolic murmur, diastolic murmur, rubs, gallop - GI/Abdominal GI/Abdominal exam: Present: soft, normal bowel sounds. Absent: distended, tenderness, guarding, rebound - Rectal Rectal exam: Present: deferred - Extremities Exam Extremities exam: Present: normal inspection - Neurological Exam Neurological exam: Present: alert, other (Oriented to name) - Psychiatric Psychiatric exam: Present: flat affect - Skin Skin exam: Present: warm, dry, intact, normal color. Absent: rash ED Course Vital Signs 08/10/20 08/10/20 08/10/20 11:55 12:00 12:16 Temperature 97.2 F L Pulse Rate 52 L 53 L 54 L Respiratory 15 21 22 Rate Blood Pressure 120/60 120/60 122/60 Blood Pressure 122/60 [Left] O2 Sat by Pulse 99 98 96 Oximetry 08/10/20 08/10/20 08/10/20 12:30 12:46 13:00 Temperature Pulse Rate 54 L 60 57 L Respiratory 18 19 19 Rate Blood Pressure 122/60 113/62 111/48 Blood Pressure [Left] O2 Sat by Pulse 98 Oximetry 08/10/20 08/10/20 08/10/20 13:16 13:30 14:25 Temperature Pulse Rate 57 L 60 65 Respiratory 14 13 15 Rate Blood Pressure 127/67 130/65 127/60 Blood Pressure [Left] O2 Sat by Pulse 97 97 100 Oximetry 08/10/20 08/10/20 08/10/20 14:31 14:45 15:01 Temperature Pulse Rate 64 62 71 Respiratory 23 19 16 Rate Blood Pressure 123/57 127/61 127/61 Blood Pressure [Left] O2 Sat by Pulse 98 99 99 Oximetry 08/10/20 08/10/20 08/10/20 15:15 15:31 15:45 Temperature Pulse Rate 69 62 62 Respiratory 23 25 H 17 Rate Blood Pressure 132/66 139/66 139/62 Blood Pressure [Left] O2 Sat by Pulse 99 97 Oximetry ED Medical Decision Making - Lab Data Result diagrams: 08/10/20 12:23 08/10/20 12:23 - Radiology Data Radiology results: report reviewed Chest radiograph: No acute findings CT abdomen pelvis: No acute abnormality, bilateral indeterminate hypoattenuating renal lesions, possible renal cysts, - Medical Decision Making 1. Recurrent hypotension: Suspect adverse effect of medication, patient presumptively does not require the 3 antihypertensive medications listed on previous medication summary which include lisinopril carvedilol amlodipine patient will need medication adjustment in communication with care center in senior living An elderly patient may consider autonomic dysfunction 2. Metformin induced lactic acidosis, patient was recently admitted in June for sepsis and low blood pressure, Admitted observation status monitor for hypotension recurrence, Critical care attestation.: If time is entered above; I have spent that time in minutes in the direct care of this critically ill patient, excluding procedure time. ED Disposition Clinical Impression: Hypotension, Lactic acidosis, Adverse effects of medication, Autonomic dysfunction Disposition: OP ADMIT IP TO THIS HOSP Is pt being admited?: Yes Does the pt Need Aspirin: No Condition: Stable
[2020-08-10 12:45] LABS: Basophils # (Auto) 0.1 K/mm3 (0.0-0.1); Eosinophils # (Auto) 0.2 K/mm3 (0.0-0.4); Eosinophils % (Auto) 3.8 % (0.0-4.3); Hematocrit 36.9 % (35.5-45.6); Hemoglobin 12.5 gm/dl (11.8-15.2); Lymphocytes # (Auto) 1.8 K/mm3 (1.2-5.4); Lymphocytes % (Auto) 27.9 % (13.4-35.0); Mean Corpuscular HGB Conc 34 % (32-34); Mean Corpuscular Volume 91 fl (84-94); Monocytes # (Auto) 0.5 K/mm3 (0.0-0.8); Monocytes % (Auto) 7.4 % (0.0-7.3); Platelet Count 196 K/mm3 (140-440); Red Blood Count 4.04 M/mm3 (3.65-5.03); Red Cell Distribution Width 14.2 % (13.2-15.2)
[2020-08-10 13:01] LABS: Calcium 9.8 mg/dL (8.4-10.2)
--- NOTE | 2020-08-10 13:21 | XRay Report ---
CHEST 1 VIEW 08/10/2020 12:34 PM INDICATION / CLINICAL INFORMATION: hypotension possible sepsis. COMPARISON: 06/22/2020 FINDINGS: SUPPORT DEVICES: None. HEART / MEDIASTINUM: No significant abnormality. LUNGS / PLEURA: No significant pulmonary or pleural abnormality. No pneumothorax. ADDITIONAL FINDINGS: No significant additional findings. IMPRESSION: 1. No acute findings. Signer Name: Dane Kennedy MD Signed: 08/10/2020 1:16 PM Workstation Name: [id number]
--- NOTE | 2020-08-10 14:18 | Cat Scan Report ---
CT abdomen pelvis wo con INDICATION: hypotension. COMPARISON: None TECHNIQUE: Abdominal and pelvic CT exam performed. All CT scans at this location are performed using CT dose reduction for ALARA by means of automated exposure control. FINDINGS: CT ABDOMEN and PELVIS: Lung Bases: No significant abnormality. Liver: No significant abnormality. Biliary: No significant abnormality. Spleen: No significant abnormality. Pancreas: No significant abnormality. Adrenals: No significant abnormality. Kidneys: There are numerous hyperattenuating bilateral renal lesions with indeterminate Hounsfield un its. Lymphatics: No lymphadenopathy. Vasculature: No significant abnormality. Bowel: No significant abnormality. Normal appendix. Pelvis: Contrast seen within the bladder related to previous examination. No prior imaging here is mi nimal with contrast. Osseous Structures: No aggressive osseous lesion. Additional Findings: None IMPRESSION: 1. No acute abnormality. 2. Bilateral indeterminate hyperattenuating renal lesions. These commonly represent hemorrhagic cysts . However, further characterization with multiphase renal protocol is recommended. Signer Name: Stephan Lara MD Signed: 08/10/2020 2:14 PM Workstation Name: [id number]
--- NOTE | 2020-08-10 14:31 | Nuclear Medicine Report ---
NUCLEAR MEDICINE PERFUSION ONLY LUNG SCAN History: hypotension Comparison: Chest radiograph 08/10/2020 Procedure: The patient was administered 5 mCi of technetium 99m labeled MAA intravenously. Findings: Wedge-shaped focal subsegmental defects are seen on perfusion imaging in the mid left and r ight lower lobe. Artifact is noted secondary to the patient's IV line. Impression: Intermediate probability of pulmonary embolism. Further evaluation with CTA chest may be helpful if clinically indicated. Signer Name: Latrell Posadas MD Signed: 08/10/2020 2:26 PM Workstation Name: [id number]
[2020-08-10] MEDS ORDERED: HYDROmorphone 1 MG/1 ML INJ IV PRN (16:20)
[2020-08-10] MEDS ORDERED: HYDROmorphone 1 MG/1 ML INJ ONE (16:26)
[2020-08-11] MEDS ORDERED: MORPHINE 2 MG/1 ML INJ IV PRN (01:22)
[2020-08-11] MEDS ORDERED: oxyCODONE /ACETAMINOPHEN 5-325MG TAB PO PRN (01:22)
[2020-08-11] MEDS ORDERED: ONDANSETRON 4 MG/2 ML INJ IV PRN (01:22)
[2020-08-11] MEDS ORDERED: ACETAMINOPHEN 325 MG TAB PO PRN (01:22)
--- NOTE | 2020-08-11 01:22 | History and Physical Report ---
History of Present Illness Date of examination: 08/10/20 Date of admission: 08/10/20 15:59 Chief complaint: Altered mental status since a.m. History of present illness: 85-year-old -[place] male with history of hypertension, type 2 diabetes, vascular dementia and hyperlipidemia [facility] and lethargic. Apparently patient was blood pressure was 60 mm systolic. Patient was evaluated at [facility] yesterday for similar symptoms. Was given IV fluids and was [facility]. Because of the recurrence of altered sensorium and low blood pressure patient was sent back to [facility] emergency room again. In the emergency room his systolic was around 70s to 80s. Patient was lethargic. Patient more alert and oriented after bolus of IV fluids. No fever or chills. No exposure to coronavirus. Vaccination status is unclear. - Past Medical History Previous Medical History?: Yes --Hypertension: Yes --Diabetes: Yes --Dementia: Yes -- left eye blind, -Surgical history N/a - Family History Hypertension - Social History Smoking Status: Never Smoker Review of Systems ROS: Constitutional low blood pressure and altered sensorium HEENT no sore throat no post nasal drip no diplopia Neck no neck stiffness no lymph gland enlargement Chest and lungs no shortness of breath cough or wheezing CVS no chest pain no diaphoresis no palpitations GI no nausea no vomiting no diarrhea Genitourinary system no dysuria no flank pain Musculoskeletal system no muscle pains no joint pains [employer] no syncope no seizures Skin no rash no itching Psychiatric no depression no homicidal or suicidal tendencies Hematologic no lymphedema or bruising Endocrine no polydipsia no polyuria no cold intolerance no heat intolerance Medications and Allergies Allergies Allergy/AdvReac Type Severity Reaction Status Date / Time Penicillins AdvReac Unknown Verified 02/21/20 13:08 Home Medications Medication Instructions Recorded Confirmed Last Taken Type amLODIPine 10 mg PO DAILY 06/22/20 06/22/20 Unknown History carvediloL [Coreg] 3.125 mg PO BID 06/22/20 06/22/20 Unknown History lisinopriL [Zestril TAB] 40 mg PO QDAY 06/22/20 06/22/20 Unknown History metFORMIN [Glucophage] 500 mg PO BID 06/22/20 06/22/20 Unknown History Latanoprost 0.005% 1 drops OU QHS bottle 06/26/20 Unknown Rx Pravastatin [Pravachol] 20 mg PO QHS #30 tablet 06/26/20 Unknown Rx Active Meds: Active Medications Hydromorphone HCl (Hydromorphone 1 Mg/1 Ml Inj) 0.5 mg IV ONCE PRN PRN Reason: Pain , Severe (7-10) Last Admin: 08/10/20 16:35 Dose: 0.5 mg Documented by: Exam - Constitutional Vitals: Temp Pulse Resp BP Pulse Ox 98.0 F 72 18 134/59 96 08/11/20 00:12 08/11/20 00:12 08/11/20 00:12 08/11/20 00:12 08/11/20 00:12 General appearance: Present: no acute distress, well-nourished - EENT Eyes: Present: PERRL ENT: hearing intact, clear oral mucosa - Neck Neck: Present: supple, normal ROM - Respiratory Respiratory effort: normal Respiratory: bilateral: CTA - Cardiovascular Rhythm: regular Heart Sounds: Present: S1 & S2. Absent: rub, click - Extremities Extremities: pulses symmetrical, No edema Peripheral Pulses: within normal limits - Abdominal General gastrointestinal: Present: soft, non-tender, non-distended, normal bowel sounds Male genitourinary: Present: normal - Integumentary Integumentary: Present: clear, warm, dry - Musculoskeletal Musculoskeletal: generalized weakness, other (Lethargic) - Psychiatric Psychiatric: other (Lethargic but improving) - Neurologic Neurologic: CNII-XII intact, moves all extremities, other (Lethargic but improving) - Allied Health Allied health notes reviewed: nursing, case management HEART Score - HEART Score History: Moderately suspicious Age: > 65 Risk factors: 1-2 risk factors Troponin: Troponin T 0.014 ng/mL (0.00-0.029) 08/10/20 12:23 Troponin: < normal limit - Critical Actions Critical Actions: 4-6 pts:12-16.6% risk of adverse cardiac event. Should be admitted Results - Labs CBC & Chem 7: 08/10/20 12:23 08/10/20 12:23 Labs: Laboratory Last Values WBC 6.3 K/mm3 (4.5-11.0) 08/10/20 12:23 RBC 4.04 M/mm3 (3.65-5.03) 08/10/20 12:23 Hgb 12.5 gm/dl (11.8-15.2) 08/10/20 12:23 Hct 36.9 % (35.5-45.6) 08/10/20 12:23 MCV 91 fl (84-94) 08/10/20 12:23 MCH 31 pg (28-32) 08/10/20 12:23 MCHC 34 % (32-34) 08/10/20 12:23 RDW 14.2 % (13.2-15.2) 08/10/20 12:23 Plt Count 196 K/mm3 (140-440) 08/10/20 12:23 Lymph % (Auto) 27.9 % (13.4-35.0) 08/10/20 12:23 [place] % (Auto) 7.4 % (0.0-7.3) H 08/10/20 12:23 Eos % (Auto) 3.8 % (0.0-4.3) 08/10/20 12:23 Baso % (Auto) 1.0 % (0.0-1.8) 08/10/20 12:23 Lymph # (Auto) 1.8 K/mm3 (1.2-5.4) 08/10/20 12:23 [place] # (Auto) 0.5 K/mm3 (0.0-0.8) 08/10/20 12:23 Eos # (Auto) 0.2 K/mm3 (0.0-0.4) 08/10/20 12:23 Baso # (Auto) 0.1 K/mm3 (0.0-0.1) 08/10/20 12:23 Seg Neutrophils % 59.9 % (40.0-70.0) 08/10/20 12:23 Seg Neutrophils # 3.8 K/mm3 (1.8-7.7) 08/10/20 12:23 D-Dimer 621.86 ng/mlDDU (0-234) H 08/10/20 13:24 Sodium 136 mmol/L (137-145) L 08/10/20 12:23 Potassium 3.9 mmol/L (3.6-5.0) 08/10/20 12:23 Chloride 99.7 mmol/L (98-107) 08/10/20 12:23 Carbon Dioxide 26 mmol/L (22-30) 08/10/20 12:23 Anion Gap 14 mmol/L 08/10/20 12:23 BUN 16 mg/dL (9-20) 08/10/20 12:23 Creatinine 1.8 mg/dL (0.8-1.3) H 08/10/20 12:23 Estimated GFR 44 ml/min 08/10/20 12:23 BUN/Creatinine Ratio 9 % 08/10/20 12:23 Glucose 121 mg/dL (75-100) H 08/10/20 12:23 Lactic Acid 1.30 mmol/L (0.7-2.0) 08/10/20 14:57 Calcium 9.8 mg/dL (8.4-10.2) 08/10/20 12:23 Total Bilirubin 0.30 mg/dL (0.1-1.2) 08/10/20 12:23 AST 14 units/L (5-40) 08/10/20 12:23 ALT 10 units/L (7-56) 08/10/20 12:23 Alkaline Phosphatase 55 units/L (35-129) 08/10/20 12:23 Troponin T 0.014 ng/mL (0.00-0.029) 08/10/20 12:23 NT-Pro-B Natriuret Pep 152.0 pg/mL (0-900) 08/10/20 12:23 Total Protein 7.6 g/dL (6.3-8.2) 08/10/20 12:23 Albumin 4.0 g/dL (3.9-5) 08/10/20 12:23 Albumin/Globulin Ratio 1.1 % 08/10/20 12:23 Short CBC 08/10/20 Range/Units 12:23 WBC 6.3 (4.5-11.0) K/mm3 Hgb 12.5 (11.8-15.2) gm/dl Hct 36.9 (35.5-45.6) % Plt Count 196 (140-440) K/mm3 BMP 08/10/20 12:23 Sodium 136 L Potassium 3.9 Chloride 99.7 Carbon Dioxide 26 BUN 16 Creatinine 1.8 H Glucose 121 H Calcium 9.8 Cardiac Enzymes 04/22/21 Range/Units 12:23 Troponin T 0.014 (0.00-0.029) ng/mL Liver Function 08/10/20 Range/Units 12:23 Total Bilirubin 0.30 (0.1-1.2) mg/dL AST 14 (5-40) units/L ALT 10 (7-56) units/L Alkaline Phosphatase 55 (35-129) units/L Albumin 4.0 (3.9-5) g/dL Microbiology: Microbiology 08/10/20 12:23 Peripheral/Venous Blood Culture - Preliminary Culture in Progress 08/10/20 12:23 Peripheral/Venous Blood Culture - Preliminary Culture in Progress - Imaging and Cardiology EKG: report reviewed (Sinus rhythm no acute ST-T wave changes) Chest x-ray: report reviewed CT scan - abdomen: report reviewed Imaging and Cardiology: VQ scan Intermediate probability of PE Further evaluation with CT angiogram of the chest may be helpful if clinically indicated Chest x-ray No acute findings CT of the abdomen and pelvis No acute abnormalities Bilateral indeterminate hyper attenuating renal lesions. These commonly represent hemorrhagic cysts. Miramontes/IV: Voiding Method Condom Catheter Assessment and Plan Advance Directives: Yes (Full code) VTE prophylaxis?: Chemical Plan of care discussed with patient/family: Yes - Patient Problems (1) Acute encephalopathy Current Visit: Yes Status: Acute Plan to address problem: Secondary to hypotension and excessive blood pressure medication Blood pressure medications to be adjusted Hold all blood pressure medications and reintroduce blood pressure medications after the blood pressure is stable or high IV fluids till then (2) Hypotension Current Visit: Yes Status: Acute Qualifiers: Hypotension type: unspecified hypotension type Qualified Code(s): I95.9 - Hypotension, unspecified Plan to address problem: Hypotension secondary to excessive blood pressure medications All blood pressure medications were stopped To be reintroduced one by one from tomorrow (3) RYANN (acute kidney injury) Current Visit: Yes Status: Acute Plan to address problem: Secondary to vasomotor nephropathy IV fluids for now Recheck creatinine (4) T2DM (type 2 diabetes mellitus) Current Visit: Yes Status: Acute Qualifiers: Diabetes mellitus salvage determiner insulin use: without fpc use Plan to address problem: Hold Metformin because of increased creatinine Check hemoglobin A1c coverage for now (5) Vascular dementia Current Visit: Yes Status: Chronic Qualifiers: Dementia behavioral disturbance: without behavioral disturbance Qualified Code(s): F01.50 - Vascular dementia without behavioral disturbance Plan to address problem: Supportive care Patient is alert Improving with IV fluids Patient is hypotensive (6) Glaucoma Current Visit: Yes Status: Chronic Qualifiers: Laterality: bilateral Glaucoma stage: stage unspecified Plan to address problem: Continue latanoprost (7) DVT prophylaxis Current Visit: Yes Status: Acute Plan to address problem: On heparin and GI prophylaxis
[2020-08-11] MEDS ORDERED: SODIUM CHLORIDE 0.9% 1000 ML 1,000 ML IV SCH (01:30)
[2020-08-11] MEDS: INSULIN LISPRO 100 UNIT/ML SUB-Q SCH ×4 (09:09→21:12)
[2020-08-11] MEDS: metFORMIN 500 MG TAB PO SCH ×2 (09:10→17:05)
[2020-08-11 09:52] LABS: Albumin 3.6 g/dL (3.9-5); Calcium 8.8 mg/dL (8.4-10.2)
[2020-08-11 09:58] LABS: Bacteria,Urine 1+ /HPF (Negative); Bilirubin,Urine NEG (Negative); Blood,Urine NEG (Negative); Color,Urine Yellow (Yellow); Mucus,Urine FEW /HPF; Protein,Urine <15 mg/dL mg/dL (Negative); Urobilinogen,Urine < 2.0 mg/dL (<2.0)
[2020-08-11] MEDS ORDERED: FAMOTIDINE 20 MG/2 ML INJ IV SCH (10:00)
--- NOTE | 2020-08-11 10:46 | Progress Note ---
Assessment and Plan Assessment and plan: Patient Problems (1) Acute encephalopathy Current Visit: Yes Status: Acute Plan to address problem: Secondary to hypotension and excessive blood pressure medication Mental status better this AM. Hold all blood pressure medications and reintroduce blood pressure medications after the blood pressure is stable or high (2) Hypotension Current Visit: Yes Status: Acute Qualifiers: Hypotension type: unspecified hypotension type Qualified Code(s): I95.9 - Hypotension, unspecified Plan to address problem: Iatrogenic Hold blood pressure medications for now (3) RYANN (acute kidney injury) Current Visit: Yes Status: Acute Plan to address problem: Secondary to vasomotor nephropathy IV fluids for now Improved (4) T2DM (type 2 diabetes mellitus) Current Visit: Yes Status: Acute Qualifiers: Diabetes mellitus detention insulin use: without detention use Plan to address problem: Hold Metformin because of increased creatinine Check hemoglobin A1c coverage for now (5) Vascular dementia Current Visit: Yes Status: Chronic Qualifiers: Dementia behavioral disturbance: without behavioral disturbance Qualified Code(s): F01.50 - Vascular dementia without behavioral disturbance Plan to address problem: Supportive care Patient is alert Improving with IV fluids Patient is hypotensive (6) Glaucoma Current Visit: Yes Status: Chronic Qualifiers: Laterality: bilateral Glaucoma stage: stage unspecified Plan to address problem: Continue latanoprost (7) DVT prophylaxis Current Visit: Yes Status: Acute Plan to address problem: On heparin and GI prophylaxis History Interval history: 85-year-old -[place] male with history of hypertension, type 2 diabetes, vascular dementia and hyperlipidemia sent from personal assisted for being confused and lethargic. Apparently patient was blood pressure was 60 mm systolic. Patient was evaluated at [facility] yesterday for similar symptoms. Was given IV fluids and was sent back to the personal assisted. Because of the recurrence of altered sensorium and low blood pressure patient was sent back to [facility] emergency room again. In the emergency room his systolic was around 70s to 80s. Patient was lethargic. Patient more alert and oriented after bolus of IV fluids. No fever or chills. No exposure to coronavirus. Vaccination status is unclear. Hospital course 08/11. Patient's blood pressure has improved. No signs of infection seen. Still holding blood pressure medications for now. VQ scan performed showed intermediate probability of PE. Will get US lower extremity doppler. Doubt PE as he is not hypoxic nor tachycardic. Hospitalist Physical - Constitutional Vitals: Temp Pulse Resp BP Pulse Ox 98.0 F 66 18 134/70 95 08/11/20 03:56 08/11/20 03:56 08/11/20 03:56 08/11/20 03:56 08/11/20 03:56 General appearance: Present: no acute distress, well-nourished HEART Score - HEART Score Age: > 65 Risk factors: 1-2 risk factors Troponin: Troponin T 0.014 ng/mL (0.00-0.029) 08/10/20 12:23 Troponin: < normal limit - Critical Actions Critical Actions: 4-6 pts:12-16.6% risk of adverse cardiac event. Should be admitted Results - Labs CBC & Chem 7: 08/10/20 12:23 08/11/20 09:08 Labs: Laboratory Last Values WBC 6.3 K/mm3 (4.5-11.0) 08/10/20 12:23 RBC 4.04 M/mm3 (3.65-5.03) 08/10/20 12:23 Hgb 12.5 gm/dl (11.8-15.2) 08/10/20 12:23 Hct 36.9 % (35.5-45.6) 08/10/20 12:23 MCV 91 fl (84-94) 08/10/20 12:23 MCH 31 pg (28-32) 08/10/20 12:23 MCHC 34 % (32-34) 08/10/20 12:23 RDW 14.2 % (13.2-15.2) 08/10/20 12:23 Plt Count 196 K/mm3 (140-440) 08/10/20 12:23 Lymph % (Auto) 27.9 % (13.4-35.0) 08/10/20 12:23 [place] % (Auto) 7.4 % (0.0-7.3) H 08/10/20 12:23 Eos % (Auto) 3.8 % (0.0-4.3) 08/10/20 12:23 Baso % (Auto) 1.0 % (0.0-1.8) 08/10/20 12:23 Lymph # (Auto) 1.8 K/mm3 (1.2-5.4) 08/10/20 12:23 [place] # (Auto) 0.5 K/mm3 (0.0-0.8) 08/10/20 12:23 Eos # (Auto) 0.2 K/mm3 (0.0-0.4) 08/10/20 12:23 Baso # (Auto) 0.1 K/mm3 (0.0-0.1) 08/10/20 12:23 Seg Neutrophils % 59.9 % (40.0-70.0) 08/10/20 12:23 Seg Neutrophils # 3.8 K/mm3 (1.8-7.7) 08/10/20 12:23 D-Dimer 621.86 ng/mlDDU (0-234) H 08/10/20 13:24 Sodium 140 mmol/L (137-145) 08/11/20 09:08 Potassium 4.2 mmol/L (3.6-5.0) 08/11/20 09:08 Chloride 103.7 mmol/L (98-107) 08/11/20 09:08 Carbon Dioxide 28 mmol/L (22-30) 08/11/20 09:08 Anion Gap 13 mmol/L 08/11/20 09:08 BUN 17 mg/dL (9-20) 08/11/20 09:08 Creatinine 1.5 mg/dL (0.8-1.3) H 08/11/20 09:08 Estimated GFR 54 ml/min 08/11/20 09:08 BUN/Creatinine Ratio 11 % 08/11/20 09:08 Glucose 77 mg/dL (75-100) 08/11/20 09:08 POC Glucose 77 mg/dL (70-105) 08/11/20 09:05 Hemoglobin A1c 6.0 % (4-6) 08/11/20 04:15 Lactic Acid 1.30 mmol/L (0.7-2.0) 08/10/20 14:57 Calcium 8.8 mg/dL (8.4-10.2) 08/11/20 09:08 Total Bilirubin 0.30 mg/dL (0.1-1.2) 08/11/20 09:08 AST 12 units/L (5-40) 08/11/20 09:08 ALT 8 units/L (7-56) 08/11/20 09:08 Alkaline Phosphatase 47 units/L (35-129) 08/11/20 09:08 Troponin T 0.014 ng/mL (0.00-0.029) 08/10/20 12:23 NT-Pro-B Natriuret Pep 152.0 pg/mL (0-900) 08/10/20 12:23 Total Protein 6.2 g/dL (6.3-8.2) L 08/11/20 09:08 Albumin 3.6 g/dL (3.9-5) L 08/11/20 09:08 Albumin/Globulin Ratio 1.4 % 08/11/20 09:08 Urine Color Yellow (Yellow) 08/11/20 09:30 Urine Turbidity Clear (Clear) 08/11/20 09:30 Urine pH 5.0 (5.0-7.0) 08/11/20 09:30 Ur Specific [place] 1.014 (1.003-1.030) 08/11/20 09:30 Urine Protein <15 mg/dl mg/dL (Negative) 08/11/20 09:30 Urine Glucose (UA) Neg mg/dL (Negative) 08/11/20 09:30 Urine Ketones Tr mg/dL (Negative) 08/11/20 09:30 Urine Blood Neg (Negative) 08/11/20 09:30 Urine Nitrite Neg (Negative) 08/11/20 09:30 Urine Bilirubin Neg (Negative) 08/11/20 09:30 Urine Urobilinogen < 2.0 mg/dL (<2.0) 08/11/20 09:30 Ur Leukocyte Esterase Lg (Negative) 08/11/20 09:30 Urine WBC (Auto) 8.0 /HPF (0.0-6.0) H 08/11/20 09:30 Urine RBC (Auto) 1.0 /HPF (0.0-6.0) 08/11/20 09:30 U Epithel Cells (Auto) < 1.0 /HPF (0-13.0) 08/11/20 09:30 Urine Bacteria (Auto) 1+ /HPF (Negative) 08/11/20 09:30 Urine Mucus Few /HPF 08/11/20 09:30 Microbiology: Microbiology 08/10/20 12:23 Peripheral/Venous Blood Culture - Preliminary Culture in Progress 08/10/20 12:23 Peripheral/Venous Blood Culture - Preliminary Culture in Progress [place]/IV: Voiding Method Condom Catheter Active Medications - Current Medications Current Medications: Generic Name Dose Route Start Last Admin Trade Name Freq PRN Reason Stop Dose Admin Acetaminophen 650 mg 08/11/20 01:22 Acetaminophen 325 Mg Tab PO Q4H PRN Pain MILD(1-3)/Fever >100.5/MILLIGAN Famotidine 20 mg 08/11/20 10:00 Famotidine 20 Mg/2 Ml Inj IV DAILY [facility] Heparin Sodium (Porcine) 5,000 unit 08/11/20 10:00 Heparin 5,000 Unit/1 Ml Vial SUB-Q Q12HR [facility] Sodium Chloride 1,000 mls @ 75 mls/hr 08/11/20 01:30 Nacl 0.9% 1000 Ml IV DIRECT [facility] Insulin Human Lispro 0 unit 08/11/20 07:30 08/11/20 09:09 Insulin Lispro 100 Unit/Ml SUB-Q Not Given ACHS [facility] Protocol Latanoprost 1 drops 08/11/20 22:00 Latanoprost 0.005% Ophth Soln 2.5 Ml OU QHS [facility] Metformin HCl 500 mg 08/11/20 08:00 08/11/20 09:10 Metformin 500 Mg Tab PO Not Given BIDDIAB [facility] Morphine Sulfate 2 mg 08/11/20 01:22 Morphine 2 Mg/1 Ml Inj IV Q4H PRN Pain, Moderate (4-6) Ondansetron HCl 4 mg 08/11/20 01:22 Ondansetron 4 Mg/2 Ml Inj IV Q8H PRN Nausea And Vomiting Oxycodone/Acetaminophen 1 tab 08/11/20 01:22 Oxycodone /Acetaminophen 5-325mg Tab PO Q6H PRN Pain, Moderate (4-6) Pravastatin Sodium 20 mg 08/11/20 22:00 Pravastatin 20 Mg Tab PO QHS [facility] Sodium Chloride 10 ml 08/11/20 02:00 08/11/20 07:26 Sodium Chloride 0.9% 10 Ml Flush Syringe IV Not Given BID ELOISA Sodium Chloride 10 ml 08/11/20 01:22 Sodium Chloride 0.9% 10 Ml Flush Syringe IV PRN PRN LINE FLUSH
[2020-08-11] MEDS: FAMOTIDINE 20 MG/2 ML INJ IV SCH (11:08)
[2020-08-11] MEDS: HEPARIN 5,000 UNIT/1 ML VIAL SUB-Q SCH ×2 (11:08→21:11)
--- NOTE | 2020-08-11 11:20 | Vascular Lab Report ---
DUPLEX DOPPLER LOWER EXTREMITY VEINS, BILATERAL INDICATION / CLINICAL INFORMATION: Rule out DVT. TECHNIQUE: Duplex doppler imaging was performed through the veins of both lower extremities using venous brigida dora and other maneuvers. COMPARISON: None available. FINDINGS: RIGHT COMMON FEMORAL VEIN: Negative. RIGHT FEMORAL VEIN: Negative. RIGHT POPLITEAL VEIN: Negative. RIGHT CALF VEINS: Negative. LEFT COMMON FEMORAL VEIN: Negative. LEFT FEMORAL VEIN: Negative. LEFT POPLITEAL VEIN: Negative. LEFT CALF VEINS: Negative. ADDITIONAL FINDINGS: None. IMPRESSION: 1. No sonographic evidence for DVT in either lower extremity. Signer Name: Joao Fairbanks MD Signed: 08/11/2020 11:16 AM Workstation Name: [email or web address]
[2020-08-11] MEDS: carvediloL 3.125 MG TAB PO SCH ×2 (13:27→21:11)
[2020-08-11] MEDS ORDERED: LATANOPROST 0.005% OPHTH SOLN 2.5 ML OU SCH (22:00)
[2020-08-11] MEDS ORDERED: PRAVASTATIN 20 MG TAB PO SCH (22:00)
[2020-08-12 04:16] VITALS: BP 110/57
[2020-08-12 06:05] LABS: Basophils % (Auto) 0.9 % (0.0-1.8); Eosinophils # (Auto) 0.3 K/mm3 (0.0-0.4); Eosinophils % (Auto) 6.4 % (0.0-4.3); Hematocrit 32.8 % (35.5-45.6); Mean Corpuscular HGB Conc 34 % (32-34); Mean Corpuscular Volume 91 fl (84-94); Monocytes # (Auto) 0.5 K/mm3 (0.0-0.8); Monocytes % (Auto) 9.6 % (0.0-7.3); Platelet Count 181 K/mm3 (140-440); Red Blood Count 3.61 M/mm3 (3.65-5.03); Red Cell Distribution Width 14.2 % (13.2-15.2)
[2020-08-12 06:26] LABS: Alanine Aminotransferase 11 units/L (7-56); Albumin 3.4 g/dL (3.9-5); BUN/Creatinine Ratio 13; Blood Urea Nitrogen 23 mg/dL (9-20); Calcium 8.5 mg/dL (8.4-10.2); Hemolysis Index 2
[2020-08-12] MEDS: INSULIN LISPRO 100 UNIT/ML SUB-Q SCH ×3 (07:41→17:23)
[2020-08-12] MEDS: metFORMIN 500 MG TAB PO SCH ×2 (08:40→17:23)
[2020-08-12] MEDS ORDERED: POTASSIUM CHLORIDE ER 20 MEQ TAB PO ONE (09:00)
[2020-08-12] MEDS: carvediloL 3.125 MG TAB PO SCH (10:13)
[2020-08-12] MEDS: HEPARIN 5,000 UNIT/1 ML VIAL SUB-Q SCH (10:13)
[2020-08-12] MEDS: FAMOTIDINE 20 MG/2 ML INJ IV SCH (10:14)
--- NOTE | 2020-08-12 11:35 | Discharge Summary ---
Providers - Providers Date of Admission: 08/10/20 15:59 Date of discharge: 08/12/20 Attending physician: KATLYN WEBSTER Primary care physician: IMPREGNATOR HELPER Hospitalization Condition: Stable Hospital course: 85-year-old -[place] male with history of hypertension, type 2 diabetes, vascular dementia and hyperlipidemia [facility] from [facility] for being confused and lethargic. Apparently patient was blood pressure was 60 mm systolic. Patient was evaluated at [facility] yesterday for similar symptoms. Was given IV fluids and was sent back to the [facility]. Because of the recurrence of altered sensorium and low blood pressure patient was sent back to [facility] emergency room again. In the emergency room his systolic was around 70s to 80s. Patient was lethargic. Patient more alert and oriented after bolus of IV fluids. No fever or chills. No exposure to coronavirus. Vaccination status is unclear. Hospital course Patient's blood pressure medications were held patient's blood pressure improved. Patient has been monitored for 24 hours and blood pressure remained stable. Coreg has been resumed. Patient will continue to hold off blood pressure medications for now. He will need to follow-up with primary medical doctor in 1 week. Disposition: DC-01 TO HOME OR SELFCARE Final Discharge Diagnosis (Prints w/discharge instructions): Hypotension secondary to BP medications Time spent for discharge: 35 minutes - Discharge Diagnoses (1) Hypotension Status: Acute Core Measure Documentation - Palliative Care Palliative Care/ Comfort Measures: Not Applicable - Core Measures Any of the following diagnoses?: none Exam - Constitutional Vitals: Temp Pulse Resp BP Pulse Ox 98.8 F 67 20 110/57 96 08/12/20 04:13 08/12/20 08:11 08/12/20 04:13 08/12/20 04:13 08/12/20 04:13 General appearance: Present: no acute distress, well-nourished - EENT Eyes: Present: PERRL ENT: hearing intact, clear oral mucosa - Neck Neck: Present: supple, normal ROM - Respiratory Respiratory effort: normal Respiratory: bilateral: CTA - Cardiovascular Heart Sounds: Present: S1 & S2. Absent: rub, click - Extremities Extremities: pulses symmetrical, No edema Peripheral Pulses: within normal limits - Abdominal General gastrointestinal: Present: soft, non-tender, non-distended, normal bowel sounds Male genitourinary: Present: normal - Integumentary Integumentary: Present: clear, warm, dry - Musculoskeletal Musculoskeletal: gait normal, strength equal bilaterally - Psychiatric Psychiatric: appropriate mood/affect, intact judgment & insight - Neurologic Neurologic: CNII-XII intact, moves all extremities Plan Diet: regular, low fat, low cholesterol Additional Instructions: Continue to hold BP medications. Okay to continue Coreg for now. Follow-up with PCP in 1 to 2 weeks Follow up with: PRIMARY CAREMD [Primary Care Provider] - 3-5 Days Prescriptions: carvediloL [Coreg] 3.125 mg PO BID #60
== END 2020-08-12 18:26 | disposition home or self-care (01) ==
LOC: ED 11:24 → 4A 15:59
PROVIDERS: ADMIT Internal Medicine; ATTEND Internal Medicine
DX: G93.40 Encephalopathy, unspecified (principal); N17.9 Acute kidney failure, unspecified; I95.9 Hypotension, unspecified; G90.9 Disorder of the autonomic nervous system, unspecified; T50.905A Adverse effect of unspecified drugs, medicaments and biological substances, initial encounter; I10 Essential (primary) hypertension; E87.2 Acidosis; H40.9 Unspecified glaucoma; E11.9 Type 2 diabetes mellitus without complications; F01.50 Vascular dementia, unspecified severity, without behavioral disturbance, psychotic disturbance, mood disturbance, and anxiety; F03.90 Unspecified dementia, unspecified severity, without behavioral disturbance, psychotic disturbance, mood disturbance, and anxiety; H54.62 Unqualified visual loss, left eye, normal vision right eye; Z79.84 Long term (current) use of oral hypoglycemic drugs; Z79.899 Other long term (current) drug therapy
CPT/HCPCS: 36415; 71045; 74176; 78580; 80053; 81001; 82140; 82962; 83036; 83880; 84484; 85025; 85379; 87040; 87086; 93970; 96361; 96372; 96374; 96375; 96376; 99284; A9270; A9540; G0378; J1170; J1644; J7030; J1815

== ENCOUNTER 2021-02-12 16:21 | Emergency (ER) | payer MEDICARE ==
--- NOTE | 2021-02-12 16:58 | Emergency Department Report ---
HPI - General Chief Complaint: Weakness Time Seen by Provider: 02/12/21 16:43 - HPI HPI: 85-year-old -[place]ian male presents to the emergency department via EMS from his adult daycare for the complaint of generalized weakness. Apparently the patient was falling asleep all day instead of participating in any activities. He was found to have low blood pressure, although I do not know what the actual number was. He received 1 L of normal saline. At the time of my examination the patient is awake and alert. When asked what brings him to the hospital he says "I think I ate too much." The patient also says "I feel fine and I am ready to go home." He has a past medical history of dementia, diabetes, hypertension. He denies any headache, vision change, chest pain, shortness of breath, abdominal pain, nausea or vomiting. ED Past Medical Hx - Past Medical History Previous Medical History?: Yes Hx Hypertension: Yes Hx Diabetes: Yes Hx Dementia: Yes Additional medical history: left eye blind, - Surgical History Past Surgical History?: No - Social History Smoking Status: Former Smoker Substance Use Type: None - Medications Home Medications: Home Medications Medication Instructions Recorded Confirmed Last Taken Type amLODIPine 10 mg PO DAILY 06/22/20 06/22/20 Unknown History lisinopriL [Zestril TAB] 40 mg PO QDAY 06/22/20 06/22/20 Unknown History metFORMIN [Glucophage] 500 mg PO BID 06/22/20 06/22/20 Unknown History Latanoprost 0.005% 1 drops OU QHS bottle 06/26/20 Unknown Rx Pravastatin [Pravachol] 20 mg PO QHS #30 tablet 06/26/20 Unknown Rx carvediloL [Coreg] 3.125 mg PO BID #60 08/12/20 Unknown Rx Nitrofurantoin [place]/M-Cryst 100 mg PO Q12HR #14 capsule 02/12/21 Unknown Rx [Macrobid CAP] ED Review of Systems ROS: Stated complaint: LBP Other details as noted in HPI Comment: All other systems reviewed and negative Constitutional: weakness. denies: chills, fever Eyes: denies: eye pain, vision change ENT: denies: ear pain, throat pain, epistaxis Respiratory: denies: cough Cardiovascular: denies: chest pain, palpitations Gastrointestinal: denies: abdominal pain, vomiting Genitourinary: denies: dysuria, discharge Musculoskeletal: denies: back pain, arthralgia Skin: denies: rash, lesions Neurological: denies: headache, numbness Physical Exam - Physical Exam Vital Signs: Vital Signs 02/12/21 02/12/21 02/12/21 16:35 16:37 16:38 Temperature 97.5 F L 97.5 F L Pulse Rate 60 60 Respiratory 22 22 Rate Blood Pressure 119/61 Blood Pressure 119/61 [Right] O2 Sat by Pulse 98 98 98 Oximetry Physical Exam: GENERAL: The patient is well-developed well-nourished. HENT: Normocephalic. Atraumatic. Patient has moist mucous membranes. EYES: Extraocular motions are intact. NECK: Supple. Trachea is midline. CHEST/LUNGS: Clear to auscultation. There is no respiratory distress noted. HEART/CARDIOVASCULAR: Regular. There is no tachycardia. There is no murmur. ABDOMEN: Abdomen is soft, nontender. Patient has normal bowel sounds. SKIN: Skin is warm and dry. NEURO: The patient is awake, alert, and cooperative. AAO x2 to person and place but not time. Normal speech. Cranial nerves II through XII grossly intact. MUSCULOSKELETAL: There is no tenderness or deformity. ED Course Vital Signs 02/12/21 02/12/21 02/12/21 16:35 16:37 16:38 Temperature 97.5 F L 97.5 F L Pulse Rate 60 60 Respiratory 22 22 Rate Blood Pressure 119/61 Blood Pressure 119/61 [Right] O2 Sat by Pulse 98 98 98 Oximetry ED Medical Decision Making - Lab Data Result diagrams: 02/12/21 17:03 02/12/21 17:03 Lab Results 02/12/21 02/12/21 02/12/21 Range/Units 17:03 17:03 17:03 WBC 6.6 (4.5-11.0) K/mm3 RBC 3.58 L (3.65-5.03) M/mm3 Hgb 10.5 L (11.8-15.2) gm/dl Hct 32.5 L (35.5-45.6) % MCV 91 (84-94) fl MCH 29 (28-32) pg MCHC 32 (32-34) % RDW 14.2 (13.2-15.2) % Plt Count 175 (140-440) K/mm3 Lymph % (Auto) 18.3 (13.4-35.0) % [place] % (Auto) 7.1 (0.0-7.3) % Eos % (Auto) 5.2 H (0.0-4.3) % Baso % (Auto) 0.7 (0.0-1.8) % Lymph # (Auto) 1.2 (1.2-5.4) K/mm3 [place] # (Auto) 0.5 (0.0-0.8) K/mm3 Eos # (Auto) 0.3 (0.0-0.4) K/mm3 Baso # (Auto) 0.0 (0.0-0.1) K/mm3 Seg Neutrophils % 68.7 (40.0-70.0) % Seg Neutrophils # 4.6 (1.8-7.7) K/mm3 Sodium 143 (137-145) mmol/L Potassium 3.9 (3.6-5.0) mmol/L Chloride 107.3 H (98-107) mmol/L Carbon Dioxide 25 (22-30) mmol/L Anion Gap 15 mmol/L BUN 26 H (9-20) mg/dL Creatinine 1.6 H (0.8-1.3) mg/dL Estimated GFR 50 ml/min BUN/Creatinine Ratio 16 % Glucose 114 H (75-100) mg/dL Calcium 8.6 (8.4-10.2) mg/dL Total Bilirubin 0.20 (0.1-1.2) mg/dL AST 9 (5-40) units/L ALT 5 L (7-56) units/L Alkaline Phosphatase 45 (35-129) units/L Total Protein 6.9 (6.3-8.2) g/dL Albumin 3.7 L (3.9-5) g/dL Albumin/Globulin Ratio 1.2 % TSH 1.380 (0.270-4.200) mlU/mL Urine Color (Yellow) Urine Turbidity (Clear) Urine pH (5.0-7.0) Ur Specific [place] (1.003-1.030) Urine Protein (Negative) mg/dL Urine Glucose (UA) (Negative) mg/dL Urine Ketones (Negative) mg/dL Urine Blood (Negative) Urine Nitrite (Negative) Urine Bilirubin (Negative) Urine Urobilinogen (<2.0) mg/dL Ur Leukocyte Esterase (Negative) Urine WBC (Auto) (0.0-6.0) /HPF Urine RBC (Auto) (0.0-6.0) /HPF U Epithel Cells (Auto) (0-13.0) /HPF Urine Mucus /HPF Urine Yeast (Budding) /HPF 02/12/21 Range/Units 17:51 WBC (4.5-11.0) K/mm3 RBC (3.65-5.03) M/mm3 Hgb (11.8-15.2) gm/dl Hct (35.5-45.6) % MCV (84-94) fl MCH (28-32) pg MCHC (32-34) % RDW (13.2-15.2) % Plt Count (140-440) K/mm3 Lymph % (Auto) (13.4-35.0) % [place] % (Auto) (0.0-7.3) % Eos % (Auto) (0.0-4.3) % Baso % (Auto) (0.0-1.8) % Lymph # (Auto) (1.2-5.4) K/mm3 [place] # (Auto) (0.0-0.8) K/mm3 Eos # (Auto) (0.0-0.4) K/mm3 Baso # (Auto) (0.0-0.1) K/mm3 Seg Neutrophils % (40.0-70.0) % Seg Neutrophils # (1.8-7.7) K/mm3 Sodium (137-145) mmol/L Potassium (3.6-5.0) mmol/L Chloride (98-107) mmol/L Carbon Dioxide (22-30) mmol/L Anion Gap mmol/L BUN (9-20) mg/dL Creatinine (0.8-1.3) mg/dL Estimated GFR ml/min BUN/Creatinine Ratio % Glucose (75-100) mg/dL Calcium (8.4-10.2) mg/dL Total Bilirubin (0.1-1.2) mg/dL AST (5-40) units/L ALT (7-56) units/L Alkaline Phosphatase (35-129) units/L Total Protein (6.3-8.2) g/dL Albumin (3.9-5) g/dL Albumin/Globulin Ratio % TSH (0.270-4.200) mlU/mL Urine Color Yellow (Yellow) Urine Turbidity Slightly-cloudy (Clear) Urine pH 8.0 H (5.0-7.0) Ur Specific [place] 1.010 (1.003-1.030) Urine Protein 30 mg/dl (Negative) mg/dL Urine Glucose (UA) Neg (Negative) mg/dL Urine Ketones Neg (Negative) mg/dL Urine Blood Sm (Negative) Urine Nitrite Neg (Negative) Urine Bilirubin Neg (Negative) Urine Urobilinogen < 2.0 (<2.0) mg/dL Ur Leukocyte Esterase Sm (Negative) Urine WBC (Auto) 36.0 H (0.0-6.0) /HPF Urine RBC (Auto) 15.0 (0.0-6.0) /HPF U Epithel Cells (Auto) < 1.0 (0-13.0) /HPF Urine Mucus Few /HPF Urine Yeast (Budding) Few /HPF - Medical Decision Making This patient was sent in from his adult daycare for the complaint of generalized weakness and decreased participation. On examination the patient is awake, alert, and does not appear in any respiratory or acute distress. The patient is AAO x2, to person and place but not time. However the patient does have a known history of dementia. Labs show some mild renal insufficiency consistent with his chronic kidney disease. He has a mild urinary tract infection for which she will be placed on Macrobid. He also has some mild anemia with a hemoglobin of 10.5, but this not at a level that would require transfusion. He was reevaluated multiple times over multiple hours and has remained stable throughout his ED course. Supposedly the patient had some hypotension when he was first picked up by EMS but there has been no hypotension throughout his ED course without any further IV fluid resuscitation given. For all these reasons he appears safe for discharge back to home. He will return to the emergency department with any worsening of his symptoms or with any acute distress. Critical Care Time: No Critical care attestation.: If time is entered above; I have spent that time in minutes in the direct care of this critically ill patient, excluding procedure time. ED Disposition Clinical Impression: Dementia Qualifiers: Dementia type: unspecified type Dementia behavioral disturbance: without behavioral disturbance Qualified Code(s): F03.90 - Unspecified dementia without behavioral disturbance UTI (urinary tract infection) Qualifiers: Urinary tract infection type: acute cystitis Hematuria presence: without hematuria Qualified Code(s): N30.00 - Acute cystitis without hematuria Disposition: HOME / SELF CARE / HOMELESS Is pt being admited?: No Condition: Stable Instructions: Urinary Tract Infection, Adult, Dementia Additional Instructions: Please follow-up with your primary care physician in the next few days. Take the antibiotics as prescribed for your urinary tract infection. Return to the emergency department with any worsening of your symptoms, new or concerning symptoms not addressed during this current emergency department visit, or with any acute distress. Prescriptions: Nitrofurantoin [place]/M-Cryst [Macrobid CAP] 100 mg PO Q12HR #14 capsule Referrals: PCP, Your [Other] - 2-3 Days Time of Disposition: 19:17
--- NOTE | 2021-02-12 17:08 | XRay Report ---
CHEST 1 VIEW 02/12/2021 4:37 PM INDICATION / CLINICAL INFORMATION: Weakness. COMPARISON: 08/10/2020 FINDINGS: SUPPORT DEVICES: None. HEART / MEDIASTINUM: No significant abnormality. LUNGS / PLEURA: No significant pulmonary or pleural abnormality. No pneumothorax. ADDITIONAL FINDINGS: No significant additional findings. IMPRESSION: 1. No acute findings. Signer Name: Dane Kennedy MD Signed: 02/12/2021 5:04 PM Workstation Name: [id number]
[2021-02-12 17:25] LABS: Basophils % (Auto) 0.7 % (0.0-1.8); Eosinophils # (Auto) 0.3 K/mm3 (0.0-0.4); Eosinophils % (Auto) 5.2 % (0.0-4.3); Hematocrit 32.5 % (35.5-45.6); Hemoglobin 10.5 gm/dl (11.8-15.2); Lymphocytes # (Auto) 1.2 K/mm3 (1.2-5.4); Lymphocytes % (Auto) 18.3 % (13.4-35.0); Mean Corpuscular HGB Conc 32 % (32-34); Mean Corpuscular Volume 91 fl (84-94); Monocytes # (Auto) 0.5 K/mm3 (0.0-0.8); Monocytes % (Auto) 7.1 % (0.0-7.3); Platelet Count 175 K/mm3 (140-440); Red Blood Count 3.58 M/mm3 (3.65-5.03); Red Cell Distribution Width 14.2 % (13.2-15.2)
[2021-02-12 18:10] LABS: Albumin 3.7 g/dL (3.9-5); Calcium 8.6 mg/dL (8.4-10.2)
[2021-02-12 18:27] LABS: Bilirubin,Urine NEG (Negative); Blood,Urine SM (Negative); Color,Urine Yellow (Yellow); Mucus,Urine FEW /HPF; Urobilinogen,Urine < 2.0 mg/dL (<2.0)
[2021-02-13 05:09] VITALS: BP 143/74
--- NOTE | 2021-02-13 19:11 | Electrocardiograph Report ---
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
== END 2021-02-13 05:08 | disposition home or self-care (01) ==
LOC: ED 16:21
DX: F03.90 Unspecified dementia, unspecified severity, without behavioral disturbance, psychotic disturbance, mood disturbance, and anxiety (principal); N39.0 Urinary tract infection, site not specified; I10 Essential (primary) hypertension; E11.9 Type 2 diabetes mellitus without complications; Z87.891 Personal history of nicotine dependence; Z88.0 Allergy status to penicillin; Z79.899 Other long term (current) drug therapy
CPT/HCPCS: 36415; 71045; 80053; 81001; 84443; 85025; 87086; 93005; 99284

== ENCOUNTER 2021-02-15 12:28 | Emergency (ER) | payer MEDICARE ==
[2021-02-15 13:42] LABS: Basophils # (Auto) 0.1 K/mm3 (0.0-0.1); Basophils % (Auto) 0.9 % (0.0-1.8); Eosinophils # (Auto) 0.3 K/mm3 (0.0-0.4); Hematocrit 35.1 % (35.5-45.6); Hemoglobin 11.4 gm/dl (11.8-15.2); Lymphocytes # (Auto) 1.3 K/mm3 (1.2-5.4); Lymphocytes % (Auto) 17.7 % (13.4-35.0); Mean Corpuscular HGB Conc 33 % (32-34); Mean Corpuscular Volume 92 fl (84-94); Monocytes # (Auto) 0.5 K/mm3 (0.0-0.8); Monocytes % (Auto) 6.9 % (0.0-7.3); Platelet Count 182 K/mm3 (140-440); Red Blood Count 3.84 M/mm3 (3.65-5.03); Red Cell Distribution Width 14.1 % (13.2-15.2)
[2021-02-15 15:56] LABS: Calcium 9.3 mg/dL (8.4-10.2)
--- NOTE | 2021-02-15 16:09 | Emergency Department Report ---
ED General Adult HPI - General Chief complaint: Weakness Stated complaint: WEAKNESS Time Seen by Provider: 02/15/21 12:57 Source: patient, EMS Mode of arrival: Stretcher Limitations: Physical Limitation - History of Present Illness Initial comments: Patient is a 85-year-old F [place] male who was sent in from a group day home for the elderly because of weakness. Patient states when he was in the bathroom having a bowel movement he did get a little bit fatigued while pushing but states he feels fine now. Staff wanted him to be brought in discharged evaluation. Patient is not complaining of any focal weakness headache chest pain shortness of breath focal neurological deficit is cough cold congestion fevers or chills. - Related Data Home Medications Medication Instructions Recorded Confirmed Last Taken amLODIPine 10 mg PO DAILY 06/22/20 06/22/20 Unknown lisinopriL [Zestril TAB] 40 mg PO QDAY 06/22/20 06/22/20 Unknown metFORMIN [Glucophage] 500 mg PO BID 06/22/20 06/22/20 Unknown Previous Rx's Medication Instructions Recorded Last Taken Type Latanoprost 0.005% 1 drops OU QHS bottle 06/26/20 Unknown Rx Pravastatin [Pravachol] 20 mg PO QHS #30 tablet 06/26/20 Unknown Rx carvediloL [Coreg] 3.125 mg PO BID #60 08/12/20 Unknown Rx Nitrofurantoin [place]/M-Cryst 100 mg PO Q12HR #14 capsule 02/12/21 Unknown Rx [Macrobid CAP] Allergies Allergy/AdvReac Type Severity Reaction Status Date / Time Penicillins AdvReac Unknown Verified 02/21/20 13:08 ED Review of Systems ROS: Stated complaint: WEAKNESS Other details as noted in HPI Comment: All other systems reviewed and negative ED Past Medical Hx - Past Medical History Hx Hypertension: Yes Hx Diabetes: Yes Hx Dementia: Yes Additional medical history: left eye blind, - Social History Smoking Status: Never Smoker Substance Use Type: None - Medications Home Medications: Home Medications Medication Instructions Recorded Confirmed Last Taken Type amLODIPine 10 mg PO DAILY 06/22/20 06/22/20 Unknown History lisinopriL [Zestril TAB] 40 mg PO QDAY 06/22/20 06/22/20 Unknown History metFORMIN [Glucophage] 500 mg PO BID 06/22/20 06/22/20 Unknown History Latanoprost 0.005% 1 drops OU QHS bottle 06/26/20 Unknown Rx Pravastatin [Pravachol] 20 mg PO QHS #30 tablet 06/26/20 Unknown Rx carvediloL [Coreg] 3.125 mg PO BID #60 08/12/20 Unknown Rx Nitrofurantoin [place]/M-Cryst 100 mg PO Q12HR #14 capsule 02/12/21 Unknown Rx [Macrobid CAP] ED Physical Exam - General Limitations: Physical Limitation General appearance: alert, in no apparent distress - Head Head exam: Present: atraumatic, normocephalic - Eye Eye exam: Present: normal appearance, PERRL, EOMI - ENT ENT exam: Present: mucous membranes moist - Neck Neck exam: Present: normal inspection - Respiratory Respiratory exam: Present: normal lung sounds bilaterally. Absent: respiratory distress, wheezes, rales, rhonchi - Cardiovascular Cardiovascular Exam: Present: regular rate, normal rhythm, normal heart sounds. Absent: systolic murmur, diastolic murmur, rubs, gallop - GI/Abdominal GI/Abdominal exam: Present: soft, normal bowel sounds. Absent: distended, tenderness, guarding, rebound - Rectal Rectal exam: Present: deferred - Extremities Exam Extremities exam: Present: normal inspection - Back Exam Back exam: Present: normal inspection - Neurological Exam Neurological exam: Present: alert, oriented X3 - Psychiatric Psychiatric exam: Present: normal affect, normal mood - Skin Skin exam: Present: warm, dry, intact, normal color. Absent: rash ED Course Vital Signs 02/15/21 02/15/21 02/15/21 13:13 13:15 13:19 Pulse Rate 60 59 L Respiratory 18 16 Rate Blood Pressure 116/59 O2 Sat by Pulse 98 98 Oximetry 02/15/21 02/15/21 02/15/21 13:31 13:45 14:01 Pulse Rate 57 L 57 L 59 L Respiratory 16 16 18 Rate Blood Pressure 119/56 127/59 123/64 O2 Sat by Pulse 100 100 100 Oximetry 02/15/21 02/15/21 02/15/21 14:15 14:31 14:45 Pulse Rate 60 63 63 Respiratory 18 18 17 Rate Blood Pressure 127/56 119/57 117/57 O2 Sat by Pulse 100 100 99 Oximetry 02/15/21 15:01 Pulse Rate 61 Respiratory 15 Rate Blood Pressure 119/56 O2 Sat by Pulse 100 Oximetry ED Medical Decision Making - Lab Data Result diagrams: 02/15/21 13:32 02/15/21 13:32 Lab Results 02/15/21 02/15/21 Range/Units 13:32 13:32 WBC 7.3 (4.5-11.0) K/mm3 RBC 3.84 (3.65-5.03) M/mm3 Hgb 11.4 L (11.8-15.2) gm/dl Hct 35.1 L (35.5-45.6) % MCV 92 (84-94) fl MCH 30 (28-32) pg MCHC 33 (32-34) % RDW 14.1 (13.2-15.2) % Plt Count 182 (140-440) K/mm3 Lymph % (Auto) 17.7 (13.4-35.0) % [place] % (Auto) 6.9 (0.0-7.3) % Eos % (Auto) 4.0 (0.0-4.3) % Baso % (Auto) 0.9 (0.0-1.8) % Lymph # (Auto) 1.3 (1.2-5.4) K/mm3 [place] # (Auto) 0.5 (0.0-0.8) K/mm3 Eos # (Auto) 0.3 (0.0-0.4) K/mm3 Baso # (Auto) 0.1 (0.0-0.1) K/mm3 Seg Neutrophils % 70.5 H (40.0-70.0) % Seg Neutrophils # 5.2 (1.8-7.7) K/mm3 Sodium 145 (137-145) mmol/L Potassium 4.0 (3.6-5.0) mmol/L Chloride 107.0 (98-107) mmol/L Carbon Dioxide 24 (22-30) mmol/L Anion Gap 18 mmol/L BUN 23 H (9-20) mg/dL Creatinine 1.5 H (0.8-1.3) mg/dL Estimated GFR 54 ml/min BUN/Creatinine Ratio 15 % Glucose 123 H (75-100) mg/dL Calcium 9.3 (8.4-10.2) mg/dL - Medical Decision Making Patient with normal vital signs. Laboratory studies are unremarkable. Renal function at baseline. Patient stable for discharge Critical care attestation.: If time is entered above; I have spent that time in minutes in the direct care of this critically ill patient, excluding procedure time. ED Disposition Clinical Impression: Fatigue Qualifiers: Encounter type: initial encounter Disposition: HOME / SELF CARE / HOMELESS Is pt being admited?: No Does the pt Need Aspirin: No Condition: Stable Instructions: Fatigue Additional Instructions: Pt is medically cleared Referrals: PRIMARY CARE, [Primary Care Provider] - 3-5 Days Time of Disposition: 16:09
[2021-02-15 17:09] VITALS: BP 133/65
== END 2021-02-15 21:00 | disposition hospice, inpatient (51) ==
LOC: ED 12:28
DX: R53.83 Other fatigue (principal); Z88.0 Allergy status to penicillin; I10 Essential (primary) hypertension; E11.9 Type 2 diabetes mellitus without complications
CPT/HCPCS: 36415; 80048; 85025; 99283